=== PATIENT | male | born 1955 | race African-American/Black ===

== ENCOUNTER 2020-01-14 07:27 | Inpatient (IN) | payer OTHER, BC ==
--- NOTE | 2020-01-14 07:40 | PDOC ---
History of Present Illness - General Chief Complaint: Nausea/Vomiting Stated Complaint: VOMITING Time Seen by Provider: 01/14/20 07:33 - History of Present Illness Initial Comments: 01/14/20 07:56 The patient is a 64 year old male with a history of HTN, HLD, DM who presents for evaluation of chest pain and nausea/vomiting. The patient reports onset of left sided chest tightness with subsequent development of nausea and multiple episodes of non-bilious/non-bloody vomiting at 1am this morning prompting his presentation to the ED for further evaluation. He denies any exacerbating or relieving factors. He denies similar symptoms in the past and otherwise denies fevers, chills, SOB, abdominal pain, or changes with urination or bowel movements. Past History - Medical History Allergies/Adverse Reactions: Allergies Allergy/AdvReac Type Severity Reaction Status Date / Time No Known Drug Allergies Allergy Verified 06/30/15 09:37 Home Medications: Ambulatory Orders Atorvastatin Calcium [Lipitor] 10 mg PO DAILY 10/05/12 Lisinopril [Prinivil] 10 mg PO DAILY 10/05/12 Sitagliptin Phos/Metformin HCl [Janumet 50-1,000 mg Tablet] 50 - 1,000 each PO BID 10/05/12 Gabapentin [Neurontin] 0 mg PO ASDIR 06/30/15 Aspirin Coated [Ecotrin -] 81 mg PO DAILY #30 tablet.ec 07/03/15 Glyburide 5 mg PO DAILY #0 07/03/15 Anemia: No Asthma: No Cancer: No Cardiac Disorders: No CVA: No COPD: No CHF: No Dementia: No Diabetes: Yes GI Disorders: No Disorders: Yes (BLADDER STONES;BPH) HTN: No Hypercholesterolemia: Yes Liver Disease: No Seizures: No Thyroid Disease: No - Surgical History Abdominal Surgery: Yes (Umbilical hernia repair) Appendectomy: No Cardiac Surgery: No Cholecystectomy: No Lung Surgery: No Neurologic Surgery: No Orthopedic Surgery: Yes (CTR; RIGHT HAND) - Psycho-Social/Smoking History Smoking Status: No Smoking History: Current every day smoker Have you smoked in the past 12 months: Yes Number of Cigarettes Smoked Daily: 5 If you are a former smoker, when did you quit?: 1987 'Breaking Loose' booklet given: 06/30/15 Review of Systems - Review of Systems Comments:: 01/14/20 08:01 Constitutional: No fevers, chills, fatigue, malaise HEENT: No Rhinorrhea, nasal congestion, visual changes Cardiovascular: Chest tightness. No syncope, palpitations, lightheadedness Respiratory: No Cough, SOB, Hemoptysis, Gastrointestinal: Nausea, Vomiting No Abdominal pain, Constipation, Diarrhea, Melena Genitourinary: No Dysuria, Frequency, Urgency, Hesitancy, Hematuria, Flank pain Musculoskeletal: No Myalgia, arthralgia Skin: No rashes, itching, bruising, pallor Neurologic: No Headache, Dizziness, Numbness, Weakness, or Tingling Psychiatric: No Hallucinations. No SI or HI *Physical Exam - Physical Exam 01/14/20 08:01 General Appearance: Nourished. No Apparent Distress HEENT: No Pharyngeal Erythema, Tonsillar Exudate, Tonsillar Erythema Neck: No Cervical Lymphadenopathy Respiratory/Chest: Lungs Clear, Normal Breath Sounds. No Crackles, Rales, Rhonchi, Wheezing Cardiovascular: Regular Rhythm, Regular Rate. No Murmur, Gallops, Rubs Gastrointestinal/Abdominal: Normal Bowel Sounds, Soft. No Guarding, Rebound, Tenderness Musculoskeletal: No CVA Tenderness Extremity: Normal Capillary Refill Integumentary: Normal Color, Dry, Warm Neurologic: Fully Oriented, Alert, Normal Mood/Affect, Normal Response, Heart Score/ECG Review #1 ECG reviewed & interpreted by me at: 08:02 01/14/20 08:02 HR 88 SC 244 QRS 82 QTc 413 Sinus rhythm with 1st degree AV Block T wave inversions in leads V5-V6 ED Treatment Course - LABORATORY CBC & Chemistry Diagram: 01/14/20 08:00 01/14/20 08:00 Medical Decision Making - Medical Decision Making 01/14/20 08:03 The patient is a 64 year old male with a history of HTN, HLD, DM who presents for evaluation of chest pain and nausea/vomiting. Differential includes but is not limited to: ACS, Musculoskeletal, Pancreatitis, Gastritis, Infectious, Metabolic derangement. Given the patient's history and physical exam, we will obtain a cbc, cmp, troponin, lipase, ekg, chest plain film to evaluate further. We will treat with asa, zofran, iv fluids and continue to monitor and reassess while here in the ED. 01/14/20 12:03 CBC, cmp, troponin, lipase were unremarkable. Chest plain film did not demonstrate any acute pathology. Gallbladder US demonstrated gallstones but no evidence of acute cholecystitis. Given the patient's cardiac risk factors, the patient will require observation admission for further monitoring and management. Discharge - Discharge Information Problems reviewed: Yes Clinical Impression/Diagnosis: Chest pain Qualifiers: Chest pain type: unspecified Qualified Code(s): R07.9 - Chest pain, unspecified Condition: Stable - Admission Yes - Follow up/Referral Referrals: James Mcfarland MD [Primary Care Provider] - - Patient Discharge Instructions - Post Discharge Activity
[2020-01-14] MEDS ORDERED: SODIUM CHLORIDE 1,000 ML IV STA (07:41)
[2020-01-14] MEDS ORDERED: ONDANSETRON 4 MG/2 ML VIAL IVPUSH ONE (07:41)
[2020-01-14] MEDS ORDERED: ASPIRIN 81 MG CHEWABLE TABLETS PO ONE (07:41)
[2020-01-14] MEDS ORDERED: ASPIRIN 81 MG CHEWABLE TABLETS ONE (07:49)
--- NOTE | 2020-01-14 07:51 | PDOC ---
Attending Attestation - Resident Resident Name: Eligio Bernal - ED Attending Attestation I have performed the following: I have examined & evaluated the patient, The case was reviewed & discussed with the resident, I agree w/resident's findings & plan, Exceptions are as noted - HPI HPI: 01/14/20 07:50 64y M hx of htn, hl, dm, presents with chest pain, n/v since approx 1am. Patient states he was watching TV at approximately 1 AM when he developed a pressure-like sensation in his mid chest associated with nausea and vomiting. The patient notes the pain seems to wax and wane lasting for several minutes at a time and then resolving before coming back an hour later. He denies any associated shortness of breath, diaphoresis, dyspnea on exertion, back pain, urinary or bowel chnges, focal numbness/tingling/weakness. He does state that with the pain he does feel very nauseous and vomits. Patient notes that he does drink alcohol frequently. IT developed as a L sided chest pain/pressure that has been constant associatd with n/v. denies any sob, abd pain, changes in bms, back pain, torres. Social hx: etoh abuse, smokes marjana and cigerettes - Physicial Exam PE: 01/14/20 08:23 GENERAL: The patient is awake, alert, and fully oriented, Nontoxic - in no acute distress. HEAD: Normocephalic, atraumatic. EYES: extraocular movements intact, sclera anicteric, conjunctiva clear. ENT: Normal voice, Moist mucous membranes. NECK: Normal range of motion, supple LUNGS: Breath sounds equal, clear to auscultation bilaterally. No wheezes, no rhonchi, no rales. HEART: Regular rate and rhythm, normal S1 and S2 without murmur, rub or gallop. ABDOMEN: Soft, nontender, No guarding, no rebound. No CVA tenderness EXTREMITIES: Normal range of motion, no edema. NEUROLOGICAL: No facial assymetry, Normal speech, PSYCH: Normal mood, normal affect. SKIN: Warm, Dry, normal turgor, - Medical Decision Making 01/14/20 08:23 Differential for the patient's symptoms includes possible ACS, consider gallbladder disease, pancreatitis, alcohol gastritis will obtain blood work, ekg, cxr will give gi coctail, asa will reasesss 01/14/20 12:23 pt admitted for further management of cp Discharge - Discharge Information Problems reviewed: Yes Clinical Impression/Diagnosis: Chest pain Qualifiers: Chest pain type: unspecified Qualified Code(s): R07.9 - Chest pain, unspecified Condition: Stable Disposition: HOME - Follow up/Referral - Patient Discharge Instructions - Post Discharge Activity
[2020-01-14] MEDS ORDERED: MAG HYDROX/AL HYDROX/SIMETH -MYLANTA- ORAL SUSPENSION PO ONE (08:10)
[2020-01-14] MEDS ORDERED: FAMOTIDINE 20 MG/50 ML IVPB 20 MG in PREMIX 50 IVPB ONE (08:10)
[2020-01-14 08:19] LABS: BASO % 0.7 % (0-2.0); EOS % 1.1 % (0-4.5); HEMATOCRIT 44.4 % (35.4-49); HEMOGLOBIN 15.2 GM/dL (11.7-16.9); LYMPH % 15.1 % (8-40); MCH 33.2 pg (25.7-33.7); MCHC 34.2 g/dl (32.0-35.9); MEAN CELL VOLUME 96.9 fl (80-96); MONO % 3.5 % (3.8-10.2); NEUT % 79.6 % (42.8-82.8); PLATELET COUNT 218 K/MM3 (134-434); RBC 4.58 M/mm3 (4.00-5.60); RDW 13.5 % (11.9-15.9); WHITE BLOOD COUNT 7.8 K/mm3 (4.0-10.0)
[2020-01-14 08:39] LABS: ALBUMIN 4.2 g/dl (3.4-5.0); ALK PHOS 79 U/L (45-117); ANION GAP 9 MMOL/L (8-16); BILIRUBIN,TOTAL 0.5 mg/dL (0.2-1); BLOOD UREA NITROGEN 13.2 mg/dL (7-18); CALCIUM 10.5 mg/dL (8.5-10.1); CHLORIDE 104 mmol/L (98-107); CO2 26 mmol/L (21-32); CREATININE 1.3 mg/dL (0.55-1.3); GLUCOSE,RANDOM 283 mg/dL (74-106); LIPASE 252 U/L (73-393); N-TERMINAL BNP 37.4 pg/ml (5-125); SGOT/AST 26 U/L (15-37); SGPT/ALT 56 U/L (13-61); SODIUM 139 mmol/L (136-145); TOT PROT 7.8 g/dl (6.4-8.2)
[2020-01-14] MEDS ORDERED: FAMOTIDINE 20 MG/50 ML IVPB 20 MG/50 ML MG IVPB ONE ×2 (08:59→09:02)
[2020-01-14] MEDS ORDERED: MAG HYDROX/AL HYDROX/SIMETH 30 ML UNIT-DOSE CUP ONE (08:59)
--- NOTE | 2020-01-14 12:29 | HP ---
Admitting History and Physical - Primary Care Physician PCP: Pearl Jean - Admission Chief Complaint: chest pain, History of Present Illness: 01/14/20 07:50 64y M hx of htn, hl, dm, presents with chest pain, n/v since approx 1am. Patient states he was watching TV at approximately 1 AM when he developed a pressure-like sensation in his mid chest associated with nausea and vomiting. The patient notes the pain seems to wax and wane lasting for several minutes at a time and then resolving before coming back an hour later. He denies any associated shortness of breath, diaphoresis, dyspnea on exertion, back pain, urinary or bowel chnges, focal numbness/tingling/weakness. He does state that with the pain he does feel very nauseous and vomits. Patient notes that he does drink alcohol frequently. IT developed as a L sided chest pain/pressure that has been constant associatd with n/v. denies any sob, abd pain, changes in bms, back pain, torres. Social hx: etoh abuse, smokes marjana and cigerettes History Source: Patient - Past Medical History Cardiovascular: Yes: HTN, Hyperlipdemia Renal/: Yes: BPH Endocrine: Yes: Diabetes Mellitus - Past Surgical History Additional Past Surgical History: cervical spine fusion, level unknown, - Smoking History Smoking history: Current every day smoker Have you smoked in the past 12 months: Yes Aproximately how many cigarettes per day: 5 If you are a former smoker, when did you quit?: 1987 - Alcohol/Substance Use Hx Alcohol Use: Yes (OCCAS) Number of Drinks Daily: 1 History of Substance Use: reports: Marijuana - Social History ADL: Independent History of Recent Travel: No Home Medications - Allergies Allergies/Adverse Reactions: Allergies Allergy/AdvReac Type Severity Reaction Status Date / Time No Known Drug Allergies Allergy Verified 06/30/15 09:37 - Home Medications Home Medications: Ambulatory Orders Atorvastatin Calcium [Lipitor] 10 mg PO DAILY 10/05/12 Lisinopril [Prinivil] 10 mg PO DAILY 10/05/12 Sitagliptin Phos/Metformin HCl [Janumet 50-1,000 mg Tablet] 50 - 1,000 each PO BID 10/05/12 Gabapentin [Neurontin] 0 mg PO ASDIR 06/30/15 Aspirin Coated [Ecotrin -] 81 mg PO DAILY #30 tablet.ec 07/03/15 Glyburide 5 mg PO DAILY #0 07/03/15 Family Medical History Family History: Unremarkable Physical Examination Vital Signs: Vital Signs Temperature 98.4 F 01/14/20 07:35 Pulse Rate 97 H 01/14/20 11:38 Respiratory Rate 17 01/14/20 11:38 Blood Pressure 148/87 01/14/20 11:38 O2 Sat by Pulse Oximetry (%) 99 01/14/20 11:38 Constitutional: Yes: Well Nourished, No Distress, Calm Eyes: Yes: Conjunctiva Clear, EOM Intact HENT: Yes: Atraumatic, Normocephalic Neck: Yes: WNL, Supple, Trachea Midline Cardiovascular: Yes: Regular Rate and Rhythm Respiratory: Yes: Regular, CTA Bilaterally Gastrointestinal: Yes: Normal Bowel Sounds, Soft, Other (non tender,) Musculoskeletal: Yes: WNL Extremities: Yes: WNL Edema: No Peripheral Pulses WNL: No Integumentary: Yes: WNL Labs: CBC, BMP 01/14/20 08:00 01/14/20 08:00 Imaging - Results Ultrasound: Report Reviewed ( Cholelithiasis is noted without sonographic evidence of acute cholecystitis. Early acute cholecystitis may not be demonstrable on sonography. There is no definite biliary tract dilatation.) Assessment/Plan The patient is a 64 year old male with a history of HTN, HLD, DM who presents for evaluation of 1.chest Pain rule out, ACS, Musculoskeletal, Pancreatitis, Gastritis, Infectious, Metabolic derangement. 1st set of cardiac markers negative, and EKG, nsr no acute st t changes, will check the fu and will get echo, and cardiology eval usg of abd Cholelithiasis is noted without sonographic evidence of acute cholecystitis. Early acute cholecystitis may not be demonstrable on sonography. There is no definite biliary tract dilatation. 2.nausea and vomiting, cont zofran and mylantal 3. DM RISS will hold po meds,bc of the vomiting 4. hld continue home meds. dvt prophylaxis, clear liquid diet and advace as tolerated Visit type - Emergency Visit Emergency Visit: Yes ED Registration Date: 01/14/20 Care time: The patient presented to the Emergency Department on the above date and was hospitalized for further evaluation of their emergent condition. - New Patient This patient is new to me today: Yes Date on this admission: 01/14/20 - Critical Care Critical Care patient: No
[2020-01-14] MEDS ORDERED: ACETAMINOPHEN 325 MG TABLET (FP) PO PRN (12:36)
[2020-01-14] MEDS ORDERED: MAG HYDROX/AL HYDROX/SIMETH 30 ML UNIT-DOSE CUP PO PRN (12:44)
--- NOTE | 2020-01-14 17:47 | CON.CARD ---
Consult Consult Specialty:: cardiology Reason for Consultation:: chest pain - History of Present Illness Chief Complaint: Pt A&Ox3; c/o nausea and vomiting; denies recent alcohol intake History of Present Illness: 64y black man (b. Carpio) with PM hx of htn, diastolic CHF hld, dm, substance abuse, presents with chest pain, n/v since approx 1am. Patient states he was watching TV at approximately 1 AM when he developed a pressure-like sensation in his mid chest associated with nausea and vomiting. The patient notes the pain seems to wax and wane lasting for several minutes at a time and then resolving before coming back an hour later. He denies any associated shortness of breath, diaphoresis, dyspnea on exertion, back pain, urinary or bowel changes, focal numbness/tingling/weakness. He does state that with the pain he does feel very nauseous and vomits. Patient notes that he does drink alcohol frequently. IT developed as a L sided chest pain/pressure that has been constant associatd with n/v. denies any sob, abd pain, changes in bms, back pain, torres. Social hx: etoh abuse, smokes marijuana and cigarettes daily; (denies cocaine) - History Source History Provided By: Patient, Medical Record Limitations to Obtaining History: No Limitations - Past Medical History Cardio/Vascular: Yes: HTN, Hyperlipdemia Renal/: Yes: BPH Endocrine: Yes: Diabetes Mellitus - Alcohol/Substance Use Hx Alcohol Use: Yes (OCCAS) Number of Drinks Daily: 1 History of Substance Use: reports: Marijuana - Smoking History Smoking history: Current every day smoker Have you smoked in the past 12 months: Yes Aproximately how many cigarettes per day: 5 If you are a former smoker, when did you quit?: 1987 - Social History ADL: Independent History of Recent Travel: No Home Medications - Allergies Allergies/Adverse Reactions: Allergies Allergy/AdvReac Type Severity Reaction Status Date / Time No Known Drug Allergies Allergy Verified 06/30/15 09:37 - Home Medications Home Medications: Ambulatory Orders Lisinopril [Prinivil] 10 mg PO DAILY 10/05/12 Sitagliptin Phos/Metformin HCl [Janumet 50-1,000 mg Tablet] 50 - 1,000 each PO BID 10/05/12 Atorvastatin Ca [Lipitor] 20 mg PO HS 01/15/20 Family Medical History Family History: Denies Review of Systems - Review of Systems Constitutional: reports: No Symptoms Eyes: reports: No Symptoms HENT: reports: No Symptoms Neck: reports: No Symptoms Cardiovascular: reports: Chest Pain Respiratory: reports: No Symptoms Gastrointestinal: reports: Nausea, Vomiting Genitourinary: reports: No Symptoms Breasts: reports: No Symptoms Reported Musculoskeletal: reports: No Symptoms Integumentary: reports: No Symptoms Neurological: reports: No Symptoms Endocrine: reports: No Symptoms Hematology/Lymphatic: reports: No Symptoms Psychiatric: reports: Other (addictions) - Risk Factors Known Risk Factors: Yes: Age, Gender, Hypercholesterolemia, Hypertension, Race, Smoking Vital Signs: Vital Signs Temperature 98.4 F 01/14/20 07:35 Pulse Rate 97 H 01/14/20 11:38 Respiratory Rate 17 01/14/20 11:38 Blood Pressure 148/87 01/14/20 11:38 O2 Sat by Pulse Oximetry (%) 99 01/14/20 11:38 Constitutional: Yes: Calm Eyes: Yes: WNL HENT: Yes: WNL Neck: Yes: WNL Respiratory: Yes: WNL Gastrointestinal: Yes: Soft, Tenderness Renal/: No: Anuria Cardiovascular: Yes: Regular Rate and Rhythm Heart Sounds: Yes: S1 (split), S2 Murmur: Yes: Systolic Murmur, Grade 1 Musculoskeletal: Yes: WNL Extremities: Yes: WNL Edema: No Integumentary: Yes: WNL Neurological: Yes: WNL ...Motor Strength: WNL Psychiatric: Yes: WNL - Other Data Labs, Other Data: CBC, BMP 01/14/20 08:00 01/14/20 08:00 Troponin, BNP 01/14/20 08:00 Troponin I < 0.02 B-Natriuretic Peptide 37.4 Troponin, BNP 01/14/20 08:00 Troponin I < 0.02 B-Natriuretic Peptide 37.4 Abnormal Lab Results 01/15/20 01/15/20 01/15/20 06:00 06:00 06:00 WBC 11.7 H Absolute Neuts (auto) 9.5 H Random Glucose 184 H Hemoglobin A1c % 9.0 H Calcium 10.7 H Creatine Kinase 310 H Triglycerides 164 H Cholesterol 229 H Total LDL Cholesterol 140 H HDL Cholesterol 38 L Urine Protein Urine Glucose (UA) Urine Ketones U Random Total Protein Urine Creatinine U Marijuana (THC) Screen 01/15/20 01/15/20 01/15/20 06:00 06:00 15:30 WBC Absolute Neuts (auto) Random Glucose Hemoglobin A1c % Calcium Creatine Kinase Triglycerides Cholesterol Total LDL Cholesterol HDL Cholesterol Urine Protein 2+ H Urine Glucose (UA) 2+ H Urine Ketones 2+ H U Random Total Protein 47.0 H Urine Creatinine 180.0 H U Marijuana (THC) Screen Positive A* 01/15/20 18:00 WBC Absolute Neuts (auto) Random Glucose Hemoglobin A1c % Calcium Creatine Kinase 408 H Triglycerides Cholesterol Total LDL Cholesterol HDL Cholesterol Urine Protein Urine Glucose (UA) Urine Ketones U Random Total Protein Urine Creatinine U Marijuana (THC) Screen Imaging - Results Chest X-ray: Image Reviewed EKG: Image Reviewed Assessment/Plan Toxicology screen Serial TNi EKG Hydration BP control (on lisinopril); f/u ECHO for LVEF (normal in 2014), diastolic compliance, valve status, chamber sizes. Help with smoking cessation (pt says he will stop tobacco, but plans to reduce, but not stop marijuana). COVID status pending.
[2020-01-14] MEDS: INSULIN SLIDING SCALE (NOVOLOG) 1 VIAL SQ SCH ×2 (18:14→22:06)
--- NOTE | 2020-01-14 18:36 | EKG ---
Test Reason : Blood Pressure : / mmHG Vent. Rate : 088 BPM Atrial Rate : 088 BPM P-R Int : 244 ms QRS Dur : 082 ms QT Int : 342 ms P-R-T Axes : 056 042 082 degrees QTc Int : 413 ms SINUS RHYTHM WITH 1ST DEGREE A-V BLOCK LEFT ATRIAL ENLARGEMENT LEFT VENTRICULAR HYPERTROPHY NONSPECIFIC T WAVE ABNORMALITY ABNORMAL ECG Confirmed by MD MITCHELL MOYSES ([id number]) on 01/14/2020 6:36:10 PM Referred By: Confirmed By:ZAY MITCHELL MD
[2020-01-14 18:55] VITALS: BMI 21.6
[2020-01-14] MEDS ORDERED: ATORVASTATIN CA 10 MG TABLET (FP) PO SCH (22:00)
[2020-01-14] MEDS: ENOXAPARIN NA (PORCINE) 40 MG/0.4 ML DISP.SYRIN SQ SCH (22:06)
[2020-01-15] MEDS: ONDANSETRON 4 MG/2 ML VIAL IVPUSH PRN ×3 (05:59→21:55)
[2020-01-15] MEDS: INSULIN SLIDING SCALE (NOVOLOG) 1 VIAL SQ SCH ×4 (06:01→21:56)
[2020-01-15 07:00] LABS: BASO % 0.3 % (0-2.0); EOS % 0.3 % (0-4.5); HEMATOCRIT 46.2 % (35.4-49); HEMOGLOBIN 15.6 GM/dL (11.7-16.9); LYMPH % 12.5 % (8-40); MCH 32.4 pg (25.7-33.7); MCHC 33.8 g/dl (32.0-35.9); MEAN CELL VOLUME 95.8 fl (80-96); MEAN PLT VOLUME 9.1 fl (7.5-11.1); MONO % 5.9 % (3.8-10.2); PLATELET COUNT 232 K/MM3 (134-434); RBC 4.82 M/mm3 (4.00-5.60); RDW 13.8 % (11.9-15.9); WHITE BLOOD COUNT 11.7 K/mm3 (4.0-10.0)
[2020-01-15 07:07] LABS: ALBUMIN 4.1 g/dl (3.4-5.0); ANION GAP 10 MMOL/L (8-16); CHLORIDE 102 mmol/L (98-107); CO2 25 mmol/L (21-32); CREATININE 1.2 mg/dL (0.55-1.3); MAGNESIUM 2.4 mg/dL (1.8-2.4); POTASSIUM 3.5 mmol/L (3.5-5.1); SGOT/AST 17 U/L (15-37); SGPT/ALT 47 U/L (13-61); SODIUM 137 mmol/L (136-145); TOT PROT 7.8 g/dl (6.4-8.2)
[2020-01-15 07:16] LABS: ALK PHOS 80 U/L (45-117); BILIRUBIN,TOTAL 0.8 mg/dL (0.2-1); BLOOD UREA NITROGEN 13.7 mg/dL (7-18); CALCIUM 10.7 mg/dL (8.5-10.1); CHOLESTEROL 229 mg/dL (50-200); GLUCOSE,RANDOM 184 mg/dL (74-106); HDL CHOLESTEROL 38 mg/dL (40-60); LDL CHOLESTEROL (ONLY SJRH) 140 mg/dL (5-100); TRIGLYCERIDES 164 mg/dL (0-150)
[2020-01-15 07:24] LABS: PH,URINE 6.5 (5.0-8.0); URINE APPEARANCE Clear; URINE BILIRUBIN Negative (NEGATIVE); URINE COLOR Yellow; URINE GLUCOSE (UA) 2+ (NEGATIVE); URINE KETONE 2+ (NEGATIVE); URINE LEUK ESTERASE Negative (NEGATIVE); URINE NITRITE Negative (NEGATIVE); URINE PROTEIN 2+ (NEGATIVE); URINE UROBILINOGEN 0.2 mg/dL (0.2-1.0)
[2020-01-15 07:34] LABS: COCAINE, UR NEGATIVE ng/ml (CUTOFF=300); OPIATES, URI NEGATIVE ng/ml (CUTOFF=300); PHENCYCLIDINE,URINE NEGATIVE ng/ml (CUTOFF=25); URINE AMPHETAMINES NEGATIVE ng/ml (CUTOFF=500); URINE BARBITURATES NEGATIVE ng/ml (CUTOFF=200)
[2020-01-15 07:41] LABS: METHADONE, UR NEGATIVE ng/ml (CUTOFF=300); URINE BENZODIAZEPINES NEGATIVE ng/ml (CUTOFF=200)
--- NOTE | 2020-01-15 09:42 | PN ---
<Essie Antoine - Last Filed: 01/15/20 15:47> Physical Exam: SUBJECTIVE: Patient seen and examined. Denies current chest pain. Endorsing mild nausea, denies further emesis. C/o mild headache. Denies abdominal pain. OBJECTIVE: Vital Signs Period Temp Pulse Resp BP Sys/Rose Pulse Ox Last 24 Hr 98.3 F-99.5 F 88-98 17-20 146-151/77-93 98-99 GENERAL: The patient is awake, alert, and fully oriented, in no acute distress. HEENT: NCAT. Sclera anicteric. No JVD. LUNGS: Breath sounds equal, ctabl, no wheezes, no crackles, no accessory muscle use. HEART: Regular rate and rhythm, S1, S2 without murmur, rub or gallop. No chest wall tenderness. ABDOMEN: Soft, nontender, nondistended, + bowel sounds, no guarding. EXTREMITIES: 2+ pulses, warm, well-perfused, no edema. NEUROLOGICAL: Cranial nerves II through XII grossly intact. PSYCH: Normal mood, normal affect. SKIN: Warm, dry, normal turgor, no rashes or lesions noted Laboratory Results - last 24 hr 01/14/20 01/14/20 01/14/20 16:13 19:30 22:05 WBC RBC Hgb Hct MCV MCH MCHC RDW Plt Count MPV Absolute Neuts (auto) Neutrophils % Lymphocytes % Monocytes % Eosinophils % Basophils % Nucleated RBC % Sodium Potassium Chloride Carbon Dioxide Anion Gap BUN Creatinine Est GFR (CKD-EPI)AfAm Est GFR (CKD-EPI)NonAf POC Glucometer 261 186 Random Glucose Hemoglobin A1c % Calcium Magnesium Total Bilirubin AST ALT Alkaline Phosphatase Creatine Kinase 1000 H Creatine Kinase Index 0.4 CK-MB (CK-2) 4.4 H Troponin I < 0.02 Total Protein Albumin Triglycerides Cholesterol Total LDL Cholesterol HDL Cholesterol Urine Color Urine Appearance Urine pH Ur Specific [place] Urine Protein Urine Glucose (UA) Urine Ketones Urine Blood Urine Nitrite Urine Bilirubin Urine Urobilinogen Ur Leukocyte Esterase Opiates Screen Methadone Screen Barbiturate Screen Phencyclidine Screen Ur Amphetamines Screen MDMA (Ecstasy) Screen Benzodiazepines Screen Cocaine Screen U Marijuana (THC) Screen 01/15/20 01/15/20 01/15/20 05:49 06:00 06:00 WBC 11.7 H RBC 4.82 Hgb 15.6 Hct 46.2 MCV 95.8 MCH 32.4 MCHC 33.8 RDW 13.8 Plt Count 232 MPV 9.1 Absolute Neuts (auto) 9.5 H Neutrophils % 81.0 Lymphocytes % 12.5 Monocytes % 5.9 Eosinophils % 0.3 Basophils % 0.3 Nucleated RBC % 0 Sodium 137 Potassium 3.5 Chloride 102 Carbon Dioxide 25 Anion Gap 10 BUN 13.7 Creatinine 1.2 Est GFR (CKD-EPI)AfAm 74.14 Est GFR (CKD-EPI)NonAf 63.97 POC Glucometer 197 Random Glucose 184 H Hemoglobin A1c % Calcium 10.7 H Magnesium 2.4 Total Bilirubin 0.8 AST 17 ALT 47 Alkaline Phosphatase 80 Creatine Kinase Creatine Kinase Index CK-MB (CK-2) Troponin I Total Protein 7.8 Albumin 4.1 Triglycerides 164 H Cholesterol 229 H Total LDL Cholesterol 140 H HDL Cholesterol 38 L Urine Color Urine Appearance Urine pH Ur Specific [place] Urine Protein Urine Glucose (UA) Urine Ketones Urine Blood Urine Nitrite Urine Bilirubin Urine Urobilinogen Ur Leukocyte Esterase Opiates Screen Methadone Screen Barbiturate Screen Phencyclidine Screen Ur Amphetamines Screen MDMA (Ecstasy) Screen Benzodiazepines Screen Cocaine Screen U Marijuana (THC) Screen 01/15/20 01/15/20 01/15/20 06:00 06:00 06:00 WBC RBC Hgb Hct MCV MCH MCHC RDW Plt Count MPV Absolute Neuts (auto) Neutrophils % Lymphocytes % Monocytes % Eosinophils % Basophils % Nucleated RBC % Sodium Potassium Chloride Carbon Dioxide Anion Gap BUN Creatinine Est GFR (CKD-EPI)AfAm Est GFR (CKD-EPI)NonAf POC Glucometer Random Glucose Hemoglobin A1c % 9.0 H Calcium Magnesium Total Bilirubin AST ALT Alkaline Phosphatase Creatine Kinase Creatine Kinase Index CK-MB (CK-2) Troponin I Total Protein Albumin Triglycerides Cholesterol Total LDL Cholesterol HDL Cholesterol Urine Color Yellow Urine Appearance Clear Urine pH 6.5 Ur Specific [place] 1.025 Urine Protein 2+ H Urine Glucose (UA) 2+ H Urine Ketones 2+ H Urine Blood Trace-intact Urine Nitrite Negative Urine Bilirubin Negative Urine Urobilinogen 0.2 Ur Leukocyte Esterase Negative Opiates Screen Negative Methadone Screen Negative Barbiturate Screen Negative Phencyclidine Screen Negative Ur Amphetamines Screen Negative MDMA (Ecstasy) Screen Negative Benzodiazepines Screen Negative Cocaine Screen Negative U Marijuana (THC) Screen Positive A* Active Medications Generic Name Dose Route Start Last Admin Trade Name Freq PRN Reason Stop Dose Admin Acetaminophen 650 mg 01/14/20 12:36 Tylenol - PO Q6H PRN PAIN LEVEL 4 - 6 Al Hydroxide/Mg Hydroxide 30 ml 01/14/20 12:44 Mylanta Oral Suspension - PO Q6H PRN DYSPEPSIA Aspirin 81 mg 01/15/20 10:00 Ecotrin - PO DAILY B[facility] Atorvastatin Calcium 10 mg 01/14/20 22:00 01/14/20 22:06 Lipitor - PO 10 mg HS B[facility] Administration Enoxaparin Sodium 40 mg 01/14/20 18:45 01/14/20 22:06 Lovenox - SQ 40 mg DAILY [facility] Administration Insulin Aspart 1 vial 01/14/20 16:30 01/15/20 06:01 Novolog Vial Sliding Scale - SQ Not Given [facility] Protocol Lisinopril 10 mg 01/15/20 10:00 Prinivil PO DAILY [facility] Ondansetron HCl 4 mg 01/14/20 12:36 01/15/20 05:59 Zofran Injection IVPUSH 4 mg Q6H PRN Administration NAUSEA ASSESSMENT/PLAN: 64 y.o. M PMH HTN, HLD, DM, nicotine dependence, daily marijuana use (noncompliant with all medications, has not picked up since 05/2019) who presented to the ED with chest pain. #Atypical chest pain -EKG showing sinus rhythm, rate 88bpm. -chest pain has resolved; receved in ED pepcid 20mg, 30m mylanta, 325mg ASA -no further episodes emesis; zofran prn -troponins negative x 2 -f/u echo -cardiology following -smoking cessation education #HTN -continue home meds : lisinpril 10mg daily #HLD -ASCVD risk 56%- wuld benefit frm high intensity statin -lipitor 40mg daily #DM -HbA1c 9.0%; pt noncompliant w/ medicatins -ISS -BGMs ACHS -endocrine f/u #Nicotine dependence -nicotine patch prn #Marijuana abuse -I have counselled patient on the risks of continue marijuana smoking. Stressed importance of smoking cessation. #FEN -NS @75cc/hr -trend & replete lytes prn -diabetic, na controlled diet #Dispo ctm telemetry Visit type - Emergency Visit Emergency Visit: Yes ED Registration Date: 01/14/20 Care time: The patient presented to the Emergency Department on the above date and was hospitalized for further evaluation of their emergent condition. - New Patient This patient is new to me today: Yes Date on this admission: 01/15/20 - Critical Care Critical Care patient: No ATTENDING PHYSICIAN STATEMENT I saw and evaluated the patient. I reviewed the resident's note and discussed the case with the resident. I agree with the resident's findings and plan as documented. SUBJECTIVE: OBJECTIVE: ASSESSMENT AND PLAN: <Wilfredo Linn - Last Filed: 01/15/20 20:49> Physical Exam: SUBJECTIVE: Patient seen and examined OBJECTIVE: Vital Signs Period Temp Pulse Resp BP Sys/Rose Pulse Ox Last 24 Hr 98.0 F-98.9 F 88-97 20-20 142-150/77-104 98-98 GENERAL: The patient is awake, alert, and fully oriented, in no acute distress. HEAD: Normal with no signs of trauma. EYES: PERRL, extraocular movements intact, sclera anicteric, conjunctiva clear. No ptosis. ENT: Ears normal, nares patent, oropharynx clear without exudates, moist mucous membranes. NECK: Trachea midline, full range of motion, supple. LUNGS: Breath sounds equal, clear to auscultation bilaterally, no wheezes, no crackles, no accessory muscle use. HEART: Regular rate and rhythm, S1, S2 without murmur, rub or gallop. ABDOMEN: Soft, nontender, nondistended, normoactive bowel sounds, no guarding, no rebound, no hepatosplenomegaly, no masses. EXTREMITIES: 2+ pulses, warm, well-perfused, no edema. NEUROLOGICAL: Cranial nerves II through XII grossly intact. Normal speech, gait not observed. PSYCH: Normal mood, normal affect. SKIN: Warm, dry, normal turgor, no rashes or lesions noted Laboratory Results - last 24 hr 01/14/20 01/14/20 01/15/20 19:30 22:05 05:49 WBC RBC Hgb Hct MCV MCH MCHC RDW Plt Count MPV Absolute Neuts (auto) Neutrophils % Lymphocytes % Monocytes % Eosinophils % Basophils % Nucleated RBC % Sodium Potassium Chloride Carbon Dioxide Anion Gap BUN Creatinine Est GFR (CKD-EPI)AfAm Est GFR (CKD-EPI)NonAf POC Glucometer 186 197 Random Glucose Hemoglobin A1c % Calcium Magnesium Total Bilirubin AST ALT Alkaline Phosphatase Creatine Kinase 1000 H Creatine Kinase Index 0.4 CK-MB (CK-2) 4.4 H Troponin I < 0.02 Total Protein Albumin Triglycerides Cholesterol Total LDL Cholesterol HDL Cholesterol Urine Color Urine Appearance Urine pH Ur Specific [place] Urine Protein Urine Glucose (UA) Urine Ketones Urine Blood Urine Nitrite Urine Bilirubin Urine Urobilinogen Ur Leukocyte Esterase Urine WBC (Auto) Urine RBC (Auto) Urine Casts (Auto) U Epithel Cells (Auto) Urine Bacteria (Auto) U Random Total Protein Urine Creatinine Protein/Creatinin Ratio Opiates Screen Methadone Screen Barbiturate Screen Phencyclidine Screen Ur Amphetamines Screen MDMA (Ecstasy) Screen Benzodiazepines Screen Cocaine Screen U Marijuana (THC) Screen 01/15/20 01/15/20 01/15/20 06:00 06:00 06:00 WBC 11.7 H RBC 4.82 Hgb 15.6 Hct 46.2 MCV 95.8 MCH 32.4 MCHC 33.8 RDW 13.8 Plt Count 232 MPV 9.1 Absolute Neuts (auto) 9.5 H Neutrophils % 81.0 Lymphocytes % 12.5 Monocytes % 5.9 Eosinophils % 0.3 Basophils % 0.3 Nucleated RBC % 0 Sodium 137 Potassium 3.5 Chloride 102 Carbon Dioxide 25 Anion Gap 10 BUN 13.7 Creatinine 1.2 Est GFR (CKD-EPI)AfAm 74.14 Est GFR (CKD-EPI)NonAf 63.97 POC Glucometer Random Glucose 184 H Hemoglobin A1c % 9.0 H Calcium 10.7 H Magnesium 2.4 Total Bilirubin 0.8 AST 17 ALT 47 Alkaline Phosphatase 80 Creatine Kinase 310 H Creatine Kinase Index 0.8 CK-MB (CK-2) 2.5 Troponin I < 0.02 Total Protein 7.8 Albumin 4.1 Triglycerides 164 H Cholesterol 229 H Total LDL Cholesterol 140 H HDL Cholesterol 38 L Urine Color Urine Appearance Urine pH Ur Specific [place] Urine Protein Urine Glucose (UA) Urine Ketones Urine Blood Urine Nitrite Urine Bilirubin Urine Urobilinogen Ur Leukocyte Esterase Urine WBC (Auto) Urine RBC (Auto) Urine Casts (Auto) U Epithel Cells (Auto) Urine Bacteria (Auto) U Random Total Protein Urine Creatinine Protein/Creatinin Ratio Opiates Screen Methadone Screen Barbiturate Screen Phencyclidine Screen Ur Amphetamines Screen MDMA (Ecstasy) Screen Benzodiazepines Screen Cocaine Screen U Marijuana (THC) Screen 01/15/20 01/15/20 01/15/20 06:00 06:00 11:16 WBC RBC Hgb Hct MCV MCH MCHC RDW Plt Count MPV Absolute Neuts (auto) Neutrophils % Lymphocytes % Monocytes % Eosinophils % Basophils % Nucleated RBC % Sodium Potassium Chloride Carbon Dioxide Anion Gap BUN Creatinine Est GFR (CKD-EPI)AfAm Est GFR (CKD-EPI)NonAf POC Glucometer 194 Random Glucose Hemoglobin A1c % Calcium Magnesium Total Bilirubin AST ALT Alkaline Phosphatase Creatine Kinase Creatine Kinase Index CK-MB (CK-2) Troponin I Total Protein Albumin Triglycerides Cholesterol Total LDL Cholesterol HDL Cholesterol Urine Color Yellow Urine Appearance Clear Urine pH 6.5 Ur Specific [place] 1.025 Urine Protein 2+ H Urine Glucose (UA) 2+ H Urine Ketones 2+ H Urine Blood Trace-intact Urine Nitrite Negative Urine Bilirubin Negative Urine Urobilinogen 0.2 Ur Leukocyte Esterase Negative Urine WBC (Auto) 7.3 Urine RBC (Auto) 44.8 Urine Casts (Auto) 8.34 U Epithel Cells (Auto) 31.7 Urine Bacteria (Auto) 29.6 U Random Total Protein Urine Creatinine Protein/Creatinin Ratio Opiates Screen Negative Methadone Screen Negative Barbiturate Screen Negative Phencyclidine Screen Negative Ur Amphetamines Screen Negative MDMA (Ecstasy) Screen Negative Benzodiazepines Screen Negative Cocaine Screen Negative U Marijuana (THC) Screen Positive A* 01/15/20 01/15/20 01/15/20 15:30 16:24 18:00 WBC RBC Hgb Hct MCV MCH MCHC RDW Plt Count MPV Absolute Neuts (auto) Neutrophils % Lymphocytes % Monocytes % Eosinophils % Basophils % Nucleated RBC % Sodium Potassium Chloride Carbon Dioxide Anion Gap BUN Creatinine Est GFR (CKD-EPI)AfAm Est GFR (CKD-EPI)NonAf POC Glucometer 187 Random Glucose Hemoglobin A1c % Calcium Magnesium Total Bilirubin AST ALT Alkaline Phosphatase Creatine Kinase 408 H Creatine Kinase Index 0.6 CK-MB (CK-2) 2.6 Troponin I < 0.02 Total Protein Albumin Triglycerides Cholesterol Total LDL Cholesterol HDL Cholesterol Urine Color Urine Appearance Urine pH Ur Specific [place] Urine Protein Urine Glucose (UA) Urine Ketones Urine Blood Urine Nitrite Urine Bilirubin Urine Urobilinogen Ur Leukocyte Esterase Urine WBC (Auto) Urine RBC (Auto) Urine Casts (Auto) U Epithel Cells (Auto) Urine Bacteria (Auto) U Random Total Protein 47.0 H Urine Creatinine 180.0 H Protein/Creatinin Ratio 0.3 Opiates Screen Methadone Screen Barbiturate Screen Phencyclidine Screen Ur Amphetamines Screen MDMA (Ecstasy) Screen Benzodiazepines Screen Cocaine Screen U Marijuana (THC) Screen Active Medications Generic Name Dose Route Start Last Admin Trade Name Freq PRN Reason Stop Dose Admin Acetaminophen 650 mg 01/14/20 12:36 Tylenol - PO Q6H PRN PAIN LEVEL 4 - 6 Al Hydroxide/Mg Hydroxide 30 ml 01/14/20 12:44 Mylanta Oral Suspension - PO Q6H PRN DYSPEPSIA Aspirin 81 mg 01/15/20 10:00 01/15/20 09:53 Ecotrin - PO 81 mg DAILY [facility]RA Administration Atorvastatin Calcium 40 mg 01/15/20 22:00 Lipitor - PO HS BUSHRA Enoxaparin Sodium 40 mg 01/14/20 18:45 01/15/20 09:53 Lovenox - SQ 40 mg DAILY B[facility] Administration Sodium Chloride 1,000 mls @ 75 mls/hr 01/15/20 09:45 01/15/20 09:56 Normal Saline - IV 75 mls/hr ASDIR B[facility] Administration Insulin Aspart 1 vial 01/14/20 16:30 01/15/20 16:25 Novolog Vial Sliding Scale - SQ Not Given ACHS [facility] Protocol Lisinopril 10 mg 01/15/20 10:00 01/15/20 09:53 Prinivil PO 10 mg DAILY B[facility] Administration Nicotine 14 mg 01/15/20 10:15 01/15/20 11:15 Nicoderm Patch - TD 14 mg DAILY B[facility]RA Administration Ondansetron HCl 4 mg 01/14/20 12:36 01/15/20 15:18 Zofran Injection IVPUSH 4 mg Q6H PRN Administration NAUSEA ASSESSMENT/PLAN: ATTENDING PHYSICIAN STATEMENT I saw and evaluated the patient. I reviewed the resident's note and discussed the case with the resident. I agree with the resident's findings and plan as documented. Patient seen and examined at bedside during my rounds. He endorses he smokes at least 1 joint of marijuana daily. He endorses sometimes he will smoke more. He endorses nausea but no vomiting. He also endorses that he has belching which he was doing in front of me. He states his chest pain has resolved. Troponin is now within normal limits. Patient states he is compliant with his medications and his blood pressure is usually well controlled. Blood pressure elevation may be due to nausea and retching. Blood pressure with minimal improvement after an additional dose of 10 mg of lisinopril. On exam he is alert awake and oriented to person place and time. He has a regular rate and rhythm on cardiac exam. Lungs are clear to auscultation bilaterally. Abdomen is soft nontender nondistended. No CVA tenderness. The patient is currently actively belching. Abdominal exam does not suggest obstruction. I suspect this patient may be having cyclical vomiting syndrome from excessive marijuana use. His urine toxicology shows positivity only for THC. His urinalysis is significant for glucosuria and proteinuria. We will get nephrology consult. I suspect the patient may have hypertensive nephropathy or diabetic nephropathy versus a combination of both. Will get protein to creatinine ratio. Follow-up cardiology consult. Follow-up nephrology consult. Start IV fluids as the patient also has mild hypercalcemia. Increase the patient's statin from low intensity to high intensity given his history of diabetes and current lipid profile. His ASCVD risk is elevated. The patient was counseled on the importance of discontinuing smoking cigarettes and marijuana. Patient states he is interested in stopping smoking cigarettes but not marijuana. Risks and benefits discussed with the patient. He endorses the Zofran helps a little bit. Continue with antiemetics. QTC is not excessively p rolonged. Upon further investigation the patient reports that hot showers will sometimes alleviate his nausea which furthers my suspicion for cyclical vomiting syndrome. Repeat Caclim level after hydration. Urinal at bedside shows very dark yellow urine. Rest as per resident note above.
[2020-01-15] MEDS: ASPIRIN COATED 81 MG TABLET.EC PO SCH (09:53)
[2020-01-15] MEDS: ENOXAPARIN NA (PORCINE) 40 MG/0.4 ML DISP.SYRIN SQ SCH (09:53)
[2020-01-15] MEDS: LISINOPRIL 10 MG TABLET (FP) PO SCH (09:53)
[2020-01-15] MEDS: SODIUM CHLORIDE 1,000 ML IV SCH (09:56)
[2020-01-15] MEDS: NICOTINE 14 MG/24 HOURS TOPICAL PATCH TD SCH (11:15)
--- NOTE | 2020-01-15 14:28 | EKG ---
Test Reason : Blood Pressure : / mmHG Vent. Rate : 087 BPM Atrial Rate : 087 BPM P-R Int : 214 ms QRS Dur : 078 ms QT Int : 346 ms P-R-T Axes : 049 044 072 degrees QTc Int : 416 ms SINUS RHYTHM WITH 1ST DEGREE A-V BLOCK LEFT ATRIAL ENLARGEMENT MINIMAL VOLTAGE CRITERIA FOR LVH, MAY BE NORMAL VARIANT NONSPECIFIC T WAVE ABNORMALITY ABNORMAL ECG WHEN COMPARED WITH ECG OF 14-JAN-2020 07:43, NO SIGNIFICANT CHANGE WAS FOUND Confirmed by MD PAULA, ZAY ([id number]) on 01/15/2020 2:28:29 PM Referred By: Jeovanny SCOTT Confirmed By:ZAY MITCHELL MD
[2020-01-15] MEDS ORDERED: LISINOPRIL 10 MG TABLET (FP) PO ONE (14:50)
[2020-01-15 14:52] LABS: EPI CELLS 31.7 /uL (0-25.1); HYALINE CASTS 8.34 /uL (0-3.1); URINE BACTERIA 29.6 /uL (0-1359); URINE RBC 44.8 /uL (0-23.9); URINE WBC 7.3 /uL (0-25.8)
[2020-01-15] MEDS ORDERED: PROCHLORPERAZINE MALEATE 5 MG TABLET PO ONE (17:48)
[2020-01-15] MEDS ORDERED: METOCLOPRAMIDE HCL 10 MG TABLET (FP) PO ONE (17:52)
[2020-01-15] MEDS: ATORVASTATIN CA 40 MG TABLET (FP) PO SCH (21:55)
--- NOTE | 2020-01-16 00:56 | PN ---
Progress Note, Physician Chief Complaint: Pt A&Ox3; no chest pain; + intermittent nausea, belching History of Present Illness: 64y black man (b. Carpio) with PM hx of htn, diastolic CHF, hld, DM, substance abuse, presents with chest pain, n/v since approx 1am. Patient states he was watching TV at approximately 1 AM when he developed a pressure-like sensation in his mid chest associated with nausea and vomiting. The patient notes the pain seems to wax and wane lasting for several minutes at a time and then resolving before coming back an hour later. He denies any associated shortness of breath, diaphoresis, dyspnea on exertion, back pain, urinary or bowel changes, focal numbness/tingling/weakness. He does state that with the pain he does feel very nauseous and vomits. Patient notes that he does drink alcohol frequently. IT developed as a L sided chest pain/pressure that has been constant associatd with n/v. denies any sob, abd pain, changes in bms, back pain, torres. Social hx: etoh abuse, smokes marijuana and cigarettes daily; (denies cocaine) - Current Medication List Current Medications: Active Medications Acetaminophen (Tylenol -) 650 mg PO Q6H PRN PRN Reason: PAIN LEVEL 4 - 6 Al Hydroxide/Mg Hydroxide (Mylanta Oral Suspension -) 30 ml PO Q6H PRN PRN Reason: DYSPEPSIA Aspirin (Ecotrin -) 81 mg PO DAILY [facility] Last Admin: 01/15/20 09:53 Dose: 81 mg Documented by: Atorvastatin Calcium (Lipitor -) 40 mg PO HS [facility] Last Admin: 01/15/20 21:55 Dose: 40 mg Documented by: Enoxaparin Sodium (Lovenox -) 40 mg SQ DAILY [facility] Last Admin: 01/15/20 09:53 Dose: 40 mg Documented by: Sodium Chloride (Normal Saline -) 1,000 mls @ 75 mls/hr IV ASDIR [facility] Last Admin: 01/15/20 09:56 Dose: 75 mls/hr Documented by: Insulin Aspart (Novolog Vial Sliding Scale -) 1 vial SQ [facility]; Protocol Last Admin: 01/15/20 21:56 Dose: Not Given Documented by: Lisinopril (Prinivil) 10 mg PO DAILY [facility] Last Admin: 01/15/20 09:53 Dose: 10 mg Documented by: Nicotine (Nicoderm Patch -) 14 mg TD DAILY [facility] Last Admin: 01/15/20 11:15 Dose: 14 mg Documented by: Ondansetron HCl (Zofran Injection) 4 mg IVPUSH Q6H PRN PRN Reason: NAUSEA Last Admin: 01/15/20 21:55 Dose: 4 mg Documented by: - Objective Vital Signs: Vital Signs Temperature 98.6 F 01/15/20 20:45 Pulse Rate 92 H 01/15/20 20:45 Respiratory Rate 01/15/20 20:45 Blood Pressure 152/102 H 01/15/20 20:45 O2 Sat by Pulse Oximetry (%) 99 01/15/20 20:45 Constitutional: Yes: Calm Eyes: Yes: WNL Labs: CBC, BMP 01/15/20 06:00 01/15/20 06:00 Assessment/Plan Nausea and vomiting atypical chest pain: negative troponins x 3 Toxicology screen: marijuana DM HTN HLD leukocytosis EKG: NSR; LAE; LVH; 1st degree AV block; T wave changes. Continue Hydration BP control (on lisinopril); f/u ECHO for LVEF (normal in 2014), diastolic compliance, valve status, chamber sizes. COVID status: IgG Ab negative Statin (elevated LDL). F/u GI w/u Pt agrees to start nicotine patch, says his has been trying to get him to stop smoking.
[2020-01-16] MEDS: INSULIN SLIDING SCALE (NOVOLOG) 1 VIAL SQ SCH ×4 (06:18→22:10)
[2020-01-16] MEDS: LISINOPRIL 10 MG TABLET (FP) PO SCH (06:57)
[2020-01-16 07:37] LABS: HEMATOCRIT 48.2 % (35.4-49); HEMOGLOBIN 16.5 GM/dL (11.7-16.9); MCH 33.3 pg (25.7-33.7); MCHC 34.2 g/dl (32.0-35.9); MEAN CELL VOLUME 97.5 fl (80-96); MEAN PLT VOLUME 9.5 fl (7.5-11.1); PLATELET COUNT 245 K/MM3 (134-434); RBC 4.95 M/mm3 (4.00-5.60); RDW 13.2 % (11.9-15.9); WHITE BLOOD COUNT 10.7 K/mm3 (4.0-10.0)
[2020-01-16 08:02] LABS: ALBUMIN 3.8 g/dl (3.4-5.0); BLOOD UREA NITROGEN 15.3 mg/dL (7-18); CALCIUM 10.3 mg/dL (8.5-10.1); CREATININE 1.1 mg/dL (0.55-1.3); POTASSIUM 4.8 mmol/L (3.5-5.1); TOT PROT 7.5 g/dl (6.4-8.2)
[2020-01-16] MEDS ORDERED: PT OWN MED DRAWER 7, Y5N ONE (08:02)
[2020-01-16] MEDS ORDERED: LISINOPRIL 10 MG TABLET (FP) PO SCH (08:50)
[2020-01-16] MEDS: ENOXAPARIN NA (PORCINE) 40 MG/0.4 ML DISP.SYRIN SQ SCH (09:16)
[2020-01-16] MEDS: ASPIRIN COATED 81 MG TABLET.EC PO SCH (09:16)
[2020-01-16] MEDS: NICOTINE 14 MG/24 HOURS TOPICAL PATCH TD SCH (09:17)
--- NOTE | 2020-01-16 09:30 | PN ---
Progress Note, Physician History of Present Illness: Denies further chest pain, nausea, emesis. BP remains elevated. - Current Medication List Current Medications: Active Medications Acetaminophen (Tylenol -) 650 mg PO Q6H PRN PRN Reason: PAIN LEVEL 4 - 6 Al Hydroxide/Mg Hydroxide (Mylanta Oral Suspension -) 30 ml PO Q6H PRN PRN Reason: DYSPEPSIA Aspirin (Ecotrin -) 81 mg PO DAILY [facility] Last Admin: 01/16/20 09:16 Dose: 81 mg Documented by: Atorvastatin Calcium (Lipitor -) 40 mg PO HS [facility] Last Admin: 01/15/20 21:55 Dose: 40 mg Documented by: Enoxaparin Sodium (Lovenox -) 40 mg SQ DAILY [facility] Last Admin: 01/16/20 09:16 Dose: 40 mg Documented by: Sodium Chloride (Normal Saline -) 1,000 mls @ 75 mls/hr IV ASDIR [facility] Last Admin: 01/15/20 09:56 Dose: 75 mls/hr Documented by: Insulin Aspart (Novolog Vial Sliding Scale -) 1 vial SQ [facility]; Protocol Last Admin: 01/16/20 06:18 Dose: Not Given Documented by: Lisinopril (Prinivil) 30 mg PO DAILY [facility] Last Admin: 01/16/20 09:17 Dose: 30 mg Documented by: Nicotine (Nicoderm Patch -) 14 mg TD DAILY [facility] Last Admin: 01/16/20 09:17 Dose: 14 mg Documented by: Ondansetron HCl (Zofran Injection) 4 mg IVPUSH Q6H PRN PRN Reason: NAUSEA Last Admin: 01/15/20 21:55 Dose: 4 mg Documented by: - Objective Vital Signs: Vital Signs Temperature 98 F 01/16/20 09:26 Pulse Rate 86 01/16/20 09:26 Respiratory Rate 20 01/16/20 09:26 Blood Pressure 173/110 H 01/16/20 09:26 O2 Sat by Pulse Oximetry (%) 99 01/15/20 20:45 Constitutional: Yes: No Distress, Calm Neck: Yes: Supple Cardiovascular: Yes: Regular Rate and Rhythm Respiratory: Yes: Regular, CTA Bilaterally Gastrointestinal: Yes: Normal Bowel Sounds, Soft Edema: No Labs: CBC, BMP 01/16/20 06:05 01/16/20 06:05 - ....Imaging EKG: Report Reviewed (Tele: NSR @ 87 1st deg AVB LVH) Problem List - Problems (1) Atypical chest pain Code(s): R07.89 - OTHER CHEST PAIN (2) Diabetes 1.5, managed as type 2 Code(s): E13.9 - OTHER SPECIFIED DIABETES MELLITUS WITHOUT COMPLICATIONS (3) Hyperlipidemia Code(s): E78.5 - HYPERLIPIDEMIA, UNSPECIFIED Qualifiers: Hyperlipidemia type: pure hypercholesterolemia Qualified Code(s): E78.00 - Pure hypercholesterolemia, unspecified; E78.0 - Pure hypercholesterolemia (4) HTN (hypertension) Code(s): I10 - ESSENTIAL (PRIMARY) HYPERTENSION Qualifiers: Hypertension type: essential hypertension Qualified Code(s): I10 - Essential (primary) hypertension Assessment/Plan EKG: NSR; LAE; LVH; 1st degree AV block; T wave changes Nausea and vomiting atypical chest pain: negative troponins x 3 Toxicology screen: marijuana DM HTN HLD leukocytosis BP control (on lisinopril and add carvedlilol 6.25 bid with uptitration as tolerated); f/u ECHO for LVEF (normal in 2015), diastolic compliance, valve status, chamber sizes. COVID status: IgG Ab negative Lipitor 40 qd (elevated LDL). F/u GI w/u Pt agrees to start nicotine patch, says his has been trying to get him to stop smoking.
[2020-01-16] MEDS ORDERED: CARVEDILOL 6.25 MG TABLET (FP) PO SCH ×2 (10:45→17:41)
[2020-01-16] MEDS: SODIUM CHLORIDE 1,000 ML IV SCH (11:40)
--- NOTE | 2020-01-16 13:32 | PN ---
Physical Exam: SUBJECTIVE: Patient seen and examined at bedside. Episodes of vomiting overnight. No acute distress OBJECTIVE: Vital Signs Period Temp Pulse Resp BP Sys/Rose Pulse Ox Last 24 Hr 98 F-98.8 F 81-94 18-20 145-175/87-110 99-99 GENERAL: NAD EYES: EOMI Sclera Clear ENT: MMM. LUNGS: CTAB HEART: RRR. ABDOMEN: Hypoactive BS, Slightly distended EXTREMITIES: No CCE NEUROLOGICAL: Cranial nerves II through XII grossly intact. Laboratory Results - last 24 hr 01/14/20 01/15/20 01/15/20 12:30 06:00 15:30 WBC RBC Hgb Hct MCV MCH MCHC RDW Plt Count MPV Sodium Potassium Chloride Carbon Dioxide Anion Gap BUN Creatinine Est GFR (CKD-EPI)AfAm Est GFR (CKD-EPI)NonAf POC Glucometer Random Glucose Calcium Total Bilirubin AST ALT Alkaline Phosphatase Creatine Kinase Creatine Kinase Index CK-MB (CK-2) Troponin I Total Protein Albumin Urine WBC (Auto) 7.3 Urine RBC (Auto) 44.8 Urine Casts (Auto) 8.34 U Epithel Cells (Auto) 31.7 Urine Bacteria (Auto) 29.6 U Random Total Protein 47.0 H Urine Creatinine 180.0 H Protein/Creatinin Ratio 0.3 SARS-CoV-2 IgG Ab Negative 01/15/20 01/15/20 01/15/20 16:24 18:00 21:53 WBC RBC Hgb Hct MCV MCH MCHC RDW Plt Count MPV Sodium Potassium Chloride Carbon Dioxide Anion Gap BUN Creatinine Est GFR (CKD-EPI)AfAm Est GFR (CKD-EPI)NonAf POC Glucometer 187 181 Random Glucose Calcium Total Bilirubin AST ALT Alkaline Phosphatase Creatine Kinase 408 H Creatine Kinase Index 0.6 CK-MB (CK-2) 2.6 Troponin I < 0.02 Total Protein Albumin Urine WBC (Auto) Urine RBC (Auto) Urine Casts (Auto) U Epithel Cells (Auto) Urine Bacteria (Auto) U Random Total Protein Urine Creatinine Protein/Creatinin Ratio SARS-CoV-2 IgG Ab 01/16/20 01/16/20 01/16/20 05:20 06:05 06:05 WBC 10.7 H RBC 4.95 Hgb 16.5 Hct 48.2 MCV 97.5 H MCH 33.3 MCHC 34.2 RDW 13.2 Plt Count 245 MPV 9.5 Sodium 136 Potassium 4.8 Chloride 103 Carbon Dioxide 24 Anion Gap 10 BUN 15.3 Creatinine 1.1 Est GFR (CKD-EPI)AfAm 82.37 Est GFR (CKD-EPI)NonAf 71.07 POC Glucometer 182 Random Glucose 178 H Calcium 10.3 H Total Bilirubin 1.0 AST 40 H ALT 45 Alkaline Phosphatase 77 Creatine Kinase Creatine Kinase Index CK-MB (CK-2) Troponin I Total Protein 7.5 Albumin 3.8 Urine WBC (Auto) Urine RBC (Auto) Urine Casts (Auto) U Epithel Cells (Auto) Urine Bacteria (Auto) U Random Total Protein Urine Creatinine Protein/Creatinin Ratio SARS-CoV-2 IgG Ab 01/16/20 11:39 WBC RBC Hgb Hct MCV MCH MCHC RDW Plt Count MPV Sodium Potassium Chloride Carbon Dioxide Anion Gap BUN Creatinine Est GFR (CKD-EPI)AfAm Est GFR (CKD-EPI)NonAf POC Glucometer 181 Random Glucose Calcium Total Bilirubin AST ALT Alkaline Phosphatase Creatine Kinase Creatine Kinase Index CK-MB (CK-2) Troponin I Total Protein Albumin Urine WBC (Auto) Urine RBC (Auto) Urine Casts (Auto) U Epithel Cells (Auto) Urine Bacteria (Auto) U Random Total Protein Urine Creatinine Protein/Creatinin Ratio SARS-CoV-2 IgG Ab Active Medications Generic Name Dose Route Start Last Admin Trade Name Freq PRN Reason Stop Dose Admin Acetaminophen 650 mg 01/14/20 12:36 Tylenol - PO Q6H PRN PAIN LEVEL 4 - 6 Al Hydroxide/Mg Hydroxide 30 ml 01/14/20 12:44 Mylanta Oral Suspension - PO Q6H PRN DYSPEPSIA Aspirin 81 mg 01/15/20 10:00 01/16/20 09:16 Ecotrin - PO 81 mg DAILY BUSHRA Administration Atorvastatin Calcium 40 mg 01/15/20 22:00 01/15/20 21:55 Lipitor - PO 40 mg HS BUSHRA Administration Carvedilol 6.25 mg 01/16/20 10:45 01/16/20 11:38 Coreg - PO 6.25 mg BID BUSHRA Administration Enoxaparin Sodium 40 mg 01/14/20 18:45 01/16/20 09:16 Lovenox - SQ 40 mg DAILY BUSHRA Administration Sodium Chloride 1,000 mls @ 75 mls/hr 01/15/20 09:45 01/16/20 11:40 Normal Saline - IV 75 mls/hr ASDIR BUSHRA Administration Insulin Aspart 1 vial 01/14/20 16:30 01/16/20 11:40 Novolog Vial Sliding Scale - SQ Not Given [facility] Protocol Lisinopril 20 mg 01/16/20 10:36 Prinivil PO DAILY BUSHRA Nicotine 14 mg 01/15/20 10:15 01/16/20 09:17 Nicoderm Patch - TD 14 mg DAILY BUSHRA Administration Ondansetron HCl 4 mg 01/14/20 12:36 01/15/20 21:55 Zofran Injection IVPUSH 4 mg Q6H PRN Administration NAUSEA ASSESSMENT/PLAN: 64 y.o. M PMH HTN, HLD, DM, nicotine dependence, daily marijuana use (noncompliant with all medications, has not picked up since 05/2019) who presented to the ED with chest pain. #Atypical chest pain -EKG NSR; LAE; LVH; 1st degree AV block; T wave changes. -chest pain has resolved; received in ED pepcid 20mg, 30m mylanta, 325mg ASA -troponins negative x 2 -f/u echo -cardiology following Dr Horne -smoking cessation education #HTN -on lisinopril and add carvedlilol 6.25 bid with uptitration as tolerated #Abdominal distension -KUB to assess for any SBO or other pathology #HLD -ASCVD risk 56%- bello benefit frm high intensity statin -lipitor 40mg daily #DM -HbA1c 9.0%; pt noncompliant w/ medications -ISS -BGMs ACHS -endocrine f/u #Nicotine dependence -nicotine patch prn #Marijuana abuse -I have counselled patient on the risks of continue marijuana smoking. Stressed importance of smoking cessation. #FEN -NS @75cc/hr -trend & replete lytes prn -diabetic, na controlled diet #Dispo telemetry Visit type - Emergency Visit Emergency Visit: Yes ED Registration Date: 01/14/20 Care time: The patient presented to the Emergency Department on the above date and was hospitalized for further evaluation of their emergent condition. - New Patient This patient is new to me today: No - Critical Care Critical Care patient: No - Discharge Referral Referred to [facility] Med P.C[facility] No ATTENDING PHYSICIAN STATEMENT I saw and evaluated the patient. I reviewed the resident's note and discussed the case with the resident. I agree with the resident's findings and plan as documented. SUBJECTIVE: OBJECTIVE: ASSESSMENT AND PLAN:
--- NOTE | 2020-01-16 14:58 | PN ---
Teaching Attending Note Name of Resident: Ranjan Hernández ATTENDING PHYSICIAN STATEMENT I saw and evaluated the patient. I reviewed the resident's note and discussed the case with the resident. I agree with the resident's findings and plan as documented. SUBJECTIVE: no fever or chills. cont to feels nauseous , no SOB or cp .last BM 2 days ago. a dmits to using marijuana daily and not taking his BP meds he takes 2000 units of Vit D daiy, no immobilization fracture, no diuretics , no other meds. No weight loss . no cough OBJECTIVE: NAD , awake, alert, cooperative CV: RRR, no MRG Lungs: CTAB Abd:soft, NT, slightly distended. No BS heard Ext : No edema or erythema on upper or lower extremities . ASSESSMENT AND PLAN: 64 y/o man with h/o HTN, HLP, DM , daily marijuana use, non compliance, who presented with CP, N/V . He was found to have eevere elevation of the BP 1- HTN urgency: due to non compliance - cont lisinopril. increase form 10 mg daily to 20 - coreg added today , will cont - further adjustment if needed 2- N/v: likely cyclic vomiting sx due to marijuana use . - counseled . - IVF - get KUB due to absence of Bowel sounds. 3- Uncontrolled Dm : - does not take his janumet at home - cont SSI here - resume Janument at dc 4- Hypercalcemia : could be due to increased Vit D use. but need to r/o other causes - check PPTH - checkl 25 OH Vit D - out pt MM work up if above work up is negative - cont IVF 5- HLP: cont statin 6- Cp resolved . EKG reviewed. 7- Biliary stones, no cholecystitis . out pt surgical f/u HLOC as he needs more BP control
[2020-01-16] MEDS ORDERED: CARVEDILOL 3.125 MG TABLET (FP) PO ONE (17:40)
--- NOTE | 2020-01-16 18:00 | CONSULT ---
Consult Consult Specialty:: Nephrology Reason for Consultation:: htn and hypercalcemia - History of Present Illness Chief Complaint: chest pain History of Present Illness: Pt is a 64 year old male with pmhx of htn, hld and dm who presented with chest pain. Pain was pressure like and in his med chest. It as associated with nausea and vomiting. He was found to be hypertensive. He was also found to be hypercalcemic. He does drink alcohol often and he does smoke marijuana. He does not always take his meds. He denies dysuria or hematuria. - History Source History Provided By: Patient - Past Medical History Cardio/Vascular: Yes: HTN, Hyperlipdemia Renal/: Yes: BPH Endocrine: Yes: Diabetes Mellitus - Alcohol/Substance Use Hx Alcohol Use: Yes (OCCAS) Number of Drinks Daily: 1 History of Substance Use: reports: Marijuana - Smoking History Smoking history: Current every day smoker Have you smoked in the past 12 months: Yes Aproximately how many cigarettes per day: 5 If you are a former smoker, when did you quit?: 1987 - Social History ADL: Independent History of Recent Travel: No Home Medications - Allergies Allergies/Adverse Reactions: Allergies Allergy/AdvReac Type Severity Reaction Status Date / Time No Known Drug Allergies Allergy Verified 06/30/15 09:37 - Home Medications Home Medications: Ambulatory Orders Lisinopril [Prinivil] 10 mg PO DAILY 10/05/12 Sitagliptin Phos/Metformin HCl [Janumet 50-1,000 mg Tablet] 50 - 1,000 each PO BID 10/05/12 Atorvastatin Ca [Lipitor] 20 mg PO HS 01/15/20 Family Medical History Family History: Denies Review of Systems - Review of Systems Constitutional: reports: Malaise Eyes: reports: No Symptoms HENT: reports: No Symptoms Neck: reports: No Symptoms Cardiovascular: reports: Chest Pain. denies: Edema Respiratory: reports: No Symptoms Gastrointestinal: reports: No Symptoms Genitourinary: reports: No Symptoms Musculoskeletal: reports: No Symptoms Integumentary: reports: No Symptoms Neurological: reports: No Symptoms Endocrine: reports: No Symptoms Hematology/Lymphatic: reports: No Symptoms Psychiatric: reports: No Symptoms Physical Exam Vital Signs: Vital Signs Temperature 98.6 F 01/16/20 17:00 Pulse Rate 82 01/16/20 17:00 Respiratory Rate 20 01/16/20 17:00 Blood Pressure 152/107 H 06/29/20 17:00 O2 Sat by Pulse Oximetry (%) 99 01/16/20 09:00 Constitutional: Yes: Calm Eyes: Yes: Conjunctiva Clear HENT: Yes: Atraumatic Cardiovascular: Yes: S1, S2 Respiratory: Yes: CTA Bilaterally Gastrointestinal: Yes: Soft Renal/: Yes: WNL Musculoskeletal: Yes: WNL Edema: No Neurological: Yes: Oriented Psychiatric: Yes: Oriented Labs: CBC, BMP 01/16/20 06:05 01/16/20 06:05 Imaging - Results Chest X-ray: Report Reviewed Problem List - Problems (1) Hypercalcemia Code(s): E83.52 - HYPERCALCEMIA (2) Atypical chest pain Code(s): R07.89 - OTHER CHEST PAIN (3) Chest pain Code(s): R07.9 - CHEST PAIN, UNSPECIFIED Qualifiers: Chest pain type: unspecified Qualified Code(s): R07.9 - Chest pain, unspecified (4) Diabetes 1.5, managed as type 2 Code(s): E13.9 - OTHER SPECIFIED DIABETES MELLITUS WITHOUT COMPLICATIONS (5) Hyperlipidemia Code(s): E78.5 - HYPERLIPIDEMIA, UNSPECIFIED Qualifiers: Hyperlipidemia type: pure hypercholesterolemia Qualified Code(s): E78.00 - Pure hypercholesterolemia, unspecified; E78.0 - Pure hypercholesterolemia Assessment/Plan Current Medications Generic Name Dose Route Start Last Admin Trade Name Freq PRN Reason Stop Dose Admin Acetaminophen 650 mg 01/14/20 12:36 Tylenol - PO Q6H PRN PAIN LEVEL 4 - 6 Al Hydroxide/Mg Hydroxide 30 ml 01/14/20 12:44 Mylanta Oral Suspension - PO Q6H PRN DYSPEPSIA Aspirin 81 mg 01/15/20 10:00 01/16/20 09:16 Ecotrin - PO 81 mg DAILY BUSHRA Administration Atorvastatin Calcium 40 mg 01/15/20 22:00 01/15/20 21:55 Lipitor - PO 40 mg HS BUSHRA Administration Carvedilol 12.5 mg 01/16/20 22:00 Coreg - PO BID BUSHRA Enoxaparin Sodium 40 mg 01/14/20 18:45 01/16/20 09:16 Lovenox - SQ 40 mg DAILY BUSHRA Administration Sodium Chloride 1,000 mls @ 75 mls/hr 01/15/20 09:45 01/16/20 11:40 Normal Saline - IV 75 mls/hr ASDIR BUSHRA Administration Insulin Aspart 1 vial 01/14/20 16:30 01/16/20 16:57 Novolog Vial Sliding Scale - SQ Not Given ACHS [facility] Protocol Lisinopril 20 mg 01/16/20 10:36 Prinivil PO DAILY BUSHRA Nicotine 14 mg 01/15/20 10:15 01/16/20 09:17 Nicoderm Patch - TD 14 mg DAILY BUSHRA Administration Ondansetron HCl 4 mg 01/14/20 12:36 01/15/20 21:55 Zofran Injection IVPUSH 4 mg Q6H PRN Administration NAUSEA Laboratory Tests 11/29/11 10/05/12 09/25/14 19:30 08:35 12:40 Calcium 10.2 10.1 10.8 H Vitamin D Level Urine Protein Urine Blood U Marijuana (THC) Screen 10/31/14 03/16/15 03/18/15 16:30 23:50 06:00 Calcium 10.2 H 10.1 9.4 Vitamin D Level Urine Protein Urine Blood U Marijuana (THC) Screen 06/30/15 01/14/20 01/15/20 10:09 08:00 06:00 Calcium 9.6 10.5 H 10.7 H Vitamin D Level Urine Protein Urine Blood U Marijuana (THC) Screen 01/15/20 01/15/20 01/16/20 06:00 06:00 06:05 Calcium 10.3 H Vitamin D Level Urine Protein 2+ H Urine Blood Trace-intact U Marijuana (THC) Screen Positive A* 01/16/20 13:05 Calcium Vitamin D Level 80.7 Urine Protein Urine Blood U Marijuana (THC) Screen Impression 1. HTN 2. hypercalcemia 3. dm 4. chest pain 5. hld 6. active smoker 7. marijuana use Plan - cont bp meds and titrate as needed - monitor bp - calcium was elevated in the past as well - follow pth level - pt with active urinary sediment, check spep - repeat labs in am - will follow - d/c supplements - discussed with medical team - repeat ua
[2020-01-16] MEDS: ONDANSETRON 4 MG/2 ML VIAL IVPUSH PRN (18:06)
[2020-01-16] MEDS: ATORVASTATIN CA 40 MG TABLET (FP) PO SCH (22:02)
[2020-01-16] MEDS: CARVEDILOL 12.5 MG TABLET (FP) PO SCH (22:02)
[2020-01-17] MEDS: INSULIN SLIDING SCALE (NOVOLOG) 1 VIAL SQ SCH ×4 (06:22→21:37)
--- NOTE | 2020-01-17 06:46 | PN ---
Progress Note (short form) - Note Progress Note: Chief Complaint: Events noted, notes reviewed, resting in bed, denies any chest discomfort, denies any dyspnea, blood pressure measurements improved but not at goal as of yet History of Present Illness: Seen and examined on telemetry. Events noted, notes reviewed, resting in bed, denies any chest discomfort, denies any dyspnea, blood pressure measurements improved but not at goal as of yet Spoke with patient's niece who is in [place] via a smart phone application, reviewed his current condition and planned treatment/management (Patient's niece is a nurse) Echocardiography study report noted, essentially normal study with normal LVEF Medications: Home Medication List Medication Instructions Recorded Confirmed Type Lisinopril [Prinivil] 10 mg PO DAILY 10/05/12 01/15/20 History Sitagliptin Phos/Metformin HCl 50 - 1,000 each PO BID 10/05/12 01/15/20 History [Janumet 50-1,000 mg Tablet] Atorvastatin Ca [Lipitor] 20 mg PO HS 01/15/20 01/15/20 History Active Medications Generic Name Dose Route Start Last Admin Trade Name Freq PRN Reason Stop Dose Admin Acetaminophen 650 mg 01/14/20 12:36 Tylenol - PO Q6H PRN PAIN LEVEL 4 - 6 Al Hydroxide/Mg Hydroxide 30 ml 01/14/20 12:44 Mylanta Oral Suspension - PO Q6H PRN DYSPEPSIA Aspirin 81 mg 01/15/20 10:00 01/16/20 09:16 Ecotrin - PO 81 mg DAILY BUSHRA Administration Atorvastatin Calcium 40 mg 01/15/20 22:00 01/16/20 22:02 Lipitor - PO 40 mg HS BUSHRA Administration Carvedilol 12.5 mg 01/16/20 22:00 01/16/20 22:02 Coreg - PO 12.5 mg BID BUSHRA Administration Enoxaparin Sodium 40 mg 01/14/20 18:45 01/16/20 09:16 Lovenox - SQ 40 mg DAILY BUSHRA Administration Sodium Chloride 1,000 mls @ 75 mls/hr 01/15/20 09:45 01/16/20 11:40 Normal Saline - IV 75 mls/hr ASDIR BUSHRA Administration Insulin Aspart 1 vial 01/14/20 16:30 01/17/20 06:22 Novolog Vial Sliding Scale - SQ Not Given ACHS BUSHRA Protocol Lisinopril 20 mg 01/16/20 10:36 Prinivil PO DAILY [facility] Nicotine 14 mg 01/15/20 10:15 01/16/20 09:17 Nicoderm Patch - TD 14 mg DAILY BUSHRA Administration Ondansetron HCl 4 mg 01/14/20 12:36 01/16/20 18:06 Zofran Injection IVPUSH 4 mg Q6H PRN Administration NAUSEA Review of Systems - Review of Systems Constitutional: denies: Fever or Chills Cardiovascular: As noted above Respiratory: denies: Cough or Sputum Production Gastrointestinal: denies: Nausea, Vomiting, Diarrhea, Constipation, Abdominal Pain Neurological: denies: Headaches Vital Signs: Last Vital Signs Temp Pulse Resp BP Pulse Ox 98.3 F 80 20 136/94 98 01/17/20 06:00 01/17/20 06:00 01/17/20 06:00 01/17/20 06:00 01/16/20 21:00 Intake & Output 01/14/20 01/15/20 01/16/20 01/17/20 23:59 23:59 23:59 23:59 Intake Total 0548 868 6606 525 Output Total 400 1800 Balance 1400 525 -300 525 Weight 164 lb 14.4 oz 164 lb Neck: Supple Negative JVD No Bruit Respiratory: Clear to auscultation and percussion Cardiovascular: S1 S2 Regular Rate and Rhythm Gastrointestinal: Soft Benign Normal Bowel Sounds Ext: Negative Edema Labs: CBC, BMP 01/17/20 07:15 01/17/20 07:15 CBC, BMP 01/16/20 06:05 01/16/20 06:05 Hepatic Panel Total Bilirubin 1.0 mg/dL (0.2-1) 01/16/20 06:05 AST 40 U/L (15-37) H 01/16/20 06:05 ALT 45 U/L (13-61) 01/16/20 06:05 Alkaline Phosphatase 77 U/L (45-117) 01/16/20 06:05 Albumin 3.8 g/dl (3.4-5.0) 01/16/20 06:05 Assessment/Plan ASSESSMENT: 1. Chest pain syndrome, clinical presentation of which is atypical for coronary artery disease and angina pectoris 2. Hypertensive cardiovascular disease, hypertensive urgency related to medical therapy administration noncompliance 3. Diabetes mellitus 4. Hypercholesterolemia 5. Nausea vomiting, clinically resolved 6. Tobacco abuse 7. Substance abuse/marijuana PLAN: 1. Continue Lisinopril therapy and dose titration as needed 2. Continue Coreg therapy and dose titration as needed 3. Continue Lipitor therapy 4. Continue Ecotrin therapy 5. Patient was strongly counseled smoking cessation and abstinence 6. Patient was strongly counseled substance abuse cessation Additional cardiovascular evaluation can be performed on an outpatient basis including myocardial perfusion imaging study Maude Quevedo M.D.
[2020-01-17 08:01] LABS: HEMATOCRIT 49.9 % (35.4-49); HEMOGLOBIN 16.8 GM/dL (11.7-16.9); MCH 32.6 pg (25.7-33.7); MCHC 33.7 g/dl (32.0-35.9); MEAN CELL VOLUME 96.8 fl (80-96); MEAN PLT VOLUME 9.5 fl (7.5-11.1); PLATELET COUNT 251 K/MM3 (134-434); RBC 5.16 M/mm3 (4.00-5.60); RDW 13.4 % (11.9-15.9); WHITE BLOOD COUNT 10.5 K/mm3 (4.0-10.0)
[2020-01-17 08:22] LABS: BLOOD UREA NITROGEN 16.8 mg/dL (7-18); CREATININE 1.3 mg/dL (0.55-1.3); MAGNESIUM 2.5 mg/dL (1.8-2.4); POTASSIUM 3.9 mmol/L (3.5-5.1)
[2020-01-17] MEDS: NICOTINE 14 MG/24 HOURS TOPICAL PATCH TD SCH (09:03)
[2020-01-17] MEDS: ENOXAPARIN NA (PORCINE) 40 MG/0.4 ML DISP.SYRIN SQ SCH (09:03)
[2020-01-17] MEDS: CARVEDILOL 12.5 MG TABLET (FP) PO SCH (09:03)
[2020-01-17] MEDS: ASPIRIN COATED 81 MG TABLET.EC PO SCH (09:03)
[2020-01-17] MEDS: LISINOPRIL 20 MG TABLET (FP) PO SCH (09:03)
--- NOTE | 2020-01-17 09:57 | PN ---
Teaching Attending Note Name of Resident: Essie Anotine ATTENDING PHYSICIAN STATEMENT I saw and evaluated the patient. I reviewed the resident's note and discussed the case with the resident. I agree with the resident's findings and plan as documented. SUBJECTIVE: Patient is comfortable with acute distress. OBJECTIVE: Vital Signs Temperature 98.3 F 01/17/20 06:00 Pulse Rate 80 01/17/20 06:00 Respiratory Rate 20 01/17/20 06:00 Blood Pressure 136/94 01/17/20 06:00 O2 Sat by Pulse Oximetry (%) 98 01/16/20 21:00 PE: per resident's note CBCD WBC 10.5 K/mm3 (4.0-10.0) H 01/17/20 07:15 RBC 5.16 M/mm3 (4.00-5.60) 01/17/20 07:15 Hgb 16.8 GM/dL (11.7-16.9) 01/17/20 07:15 Hct 49.9 % (35.4-49) H 01/17/20 07:15 MCV 96.8 fl (80-96) H 01/17/20 07:15 MCHC 33.7 g/dl (32.0-35.9) 01/17/20 07:15 RDW 13.4 % (11.9-15.9) 01/17/20 07:15 Plt Count 251 K/MM3 (134-434) 01/17/20 07:15 MPV 9.5 fl (7.5-11.1) 01/17/20 07:15 CMP Sodium 134 mmol/L (136-145) L 01/17/20 07:15 Potassium 3.9 mmol/L (3.5-5.1) 01/17/20 07:15 Chloride 99 mmol/L (98-107) 01/17/20 07:15 Carbon Dioxide 28 mmol/L (21-32) 01/17/20 07:15 Anion Gap 7 MMOL/L (8-16) L 01/17/20 07:15 BUN 16.8 mg/dL (7-18) 01/17/20 07:15 Creatinine 1.3 mg/dL (0.55-1.3) 01/17/20 07:15 Random Glucose 179 mg/dL (74-106) H 01/17/20 07:15 Calcium 11.0 mg/dL (8.5-10.1) H 01/17/20 07:15 Total Bilirubin 1.0 mg/dL (0.2-1) 01/16/20 06:05 AST 40 U/L (15-37) H 01/16/20 06:05 ALT 45 U/L (13-61) 01/16/20 06:05 Alkaline Phosphatase 77 U/L (45-117) 01/16/20 06:05 Total Protein 7.5 g/dl (6.4-8.2) 01/16/20 06:05 Albumin 3.8 g/dl (3.4-5.0) 01/16/20 06:05 CARDIAC ENZYMES Creatine Kinase 408 U/L (26-308) H 01/15/20 18:00 Troponin I < 0.02 ng/ml (0.00-0.05) 01/15/20 18:00 Current Medications Generic Name Dose Route Start Last Admin Trade Name Freq PRN Reason Stop Dose Admin Acetaminophen 650 mg 01/14/20 12:36 Tylenol - PO Q6H PRN PAIN LEVEL 4 - 6 Al Hydroxide/Mg Hydroxide 30 ml 01/14/20 12:44 Mylanta Oral Suspension - PO Q6H PRN DYSPEPSIA Aspirin 81 mg 01/15/20 10:00 01/17/20 09:03 Ecotrin - PO 81 mg DAILY BUSHRA Administration Atorvastatin Calcium 40 mg 01/15/20 22:00 01/16/20 22:02 Lipitor - PO 40 mg HS BUSHRA Administration Carvedilol 12.5 mg 01/16/20 22:00 01/17/20 09:03 Coreg - PO 12.5 mg BID BUSHRA Administration Enoxaparin Sodium 40 mg 01/14/20 18:45 01/17/20 09:03 Lovenox - SQ 40 mg DAILY BUSHRA Administration Sodium Chloride 1,000 mls @ 75 mls/hr 01/15/20 09:45 01/16/20 11:40 Normal Saline - IV 75 mls/hr ASDIR BUSHRA Administration Insulin Aspart 1 vial 01/14/20 16:30 01/17/20 06:22 Novolog Vial Sliding Scale - SQ Not Given ACHS BUSHRA Protocol Lisinopril 20 mg 01/16/20 10:36 01/17/20 09:03 Prinivil PO 20 mg DAILY BUSHRA Administration Nicotine 14 mg 01/15/20 10:15 01/17/20 09:03 Nicoderm Patch - TD 14 mg DAILY BUSHRA Administration Ondansetron HCl 4 mg 01/14/20 12:36 01/16/20 18:06 Zofran Injection IVPUSH 4 mg Q6H PRN Administration NAUSEA Home Medications Medication Instructions Recorded Lisinopril [Prinivil] 10 mg PO DAILY 10/05/12 Sitagliptin Phos/Metformin HCl 50 - 1,000 each PO BID 10/05/12 [Janumet 50-1,000 mg Tablet] Atorvastatin Ca [Lipitor] 20 mg PO HS 01/15/20 EKG: Sinus rhythm with 1sr degree AVB, LAE, rate 87, nonspecfic T-wave abnormality. ECHO: with doppler: EJF=65% US of gallbladder: cholelithiais is noted without sonographic evidence of acute cholecystitis. no billiary tract dilatation. Abdomen flat and upright: no acute pathology ASSESSMENT AND PLAN: This patient is a 64yom with PMhx of HTN, HLP, DM , daily marijuana use, non compliance, who presented with CP, N/V . He was admitted for Hypertensive urgency. # HTN urgency: non compliance with his meds, continue lisinopril increased from 10 mg daily to 20 , coreg, continue to monitor # N/v: likely cyclic vomiting sx due to marijuana use . # Uncontrolled T2DM : on SSi with coverage , does not like to take Janumet # Hypercalcemia :will check PTH level , elevated Vit D 80's the level , continue IVF # HLP: cont statin # Cp resolved . EKG reviewed. # Biliary stones, no cholecystitis . out pt surgical f/u DVT Px: Lovenox sq
--- NOTE | 2020-01-17 10:39 | ECHO ---
Name: TOVA HAND Exam:Adult Echocardiogram Study Date: 01/17/2020 09:51 AM Age: 64 yrs Reason For Study: Chest pain Height: 71 in Weight: 168 lb BSA: 2.0 m2 MMode/2D Measurements & Calculations RVDd: 3.0 cm Ao root diam: 2.9 cm IVSd: 1.0 cm LA dimension: 3.1 cm LVIDd: 4.2 cm ACS: 1.7 cm LVIDs: 2.9 cm LVPWd: 0.92 cm EDV(Teich): 76.6 ml LVOT diam: 2.0 cm ESV(Teich): 33.3 ml LAV (MOD-bp): 34.0 ml TAPSE: 2.1 cm RV S Andre: 12.3 cm/sec Doppler Measurements & Calculations MV E max andre: 41.0 cm/sec Ao V2 max: 130.3 cm/sec MV A max andre: 74.5 cm/sec Ao max P.8 mmHg MV E/A: 0.55 Ao V2 mean: 91.4 cm/sec MV dec time: 0.31 sec Ao mean P.8 mmHg Ao V2 VTI: 23.5 cm JAHAIRA(I,D): 2.4 cm2 JAHAIRA(V,D): 2.3 cm2 LV V1 max P.5 mmHg SV(LVOT): 55.8 ml LV V1 mean P.7 mmHg LV V1 max: 93.8 cm/sec LV V1 mean: 58.9 cm/sec LV V1 VTI: 17.6 cm PA V2 max: 114.0 cm/sec Med Peak E' Andre: 3.3 cm/sec PA max P.2 mmHg Med E/e': 12.4 PA acc slope: 923.6 cm/sec2 Lat Peak E' Andre: 6.5 cm/sec PA acc time: 0.12 sec Lat E/e': 6.3 PA pr(Accel): 25.1 mmHg Pulm Sys Andre: 55.3 cm/sec Pulm Rose Andre: 32.1 cm/sec Pulm S/D: 1.7 Tech Comments TDS. Patient very thin. Procedure A complete two-dimensional transthoracic echocardiogram was performed (2D, M-mode, Doppler and color flow Doppler). The patient was in normal sinus rhythm during the exam. Left Ventricle The left ventricular size, thickness and function are normal. Ejection Fraction = 65%. E/A reversal c onsistent with but not diagnostic of poor LV compliance. The left ventricular wall motion is normal. Right Ventricle The right ventricle is normal in size and function. Atria Normal left and right atrial size and function. Mitral Valve The mitral valve is normal in structure and function. There is trace mitral regurgitation. Tricuspid Valve The tricuspid valve is normal in structure and function. There was insufficient TR detected to calcul ate RV systolic pressure. Aortic Valve The aortic valve is normal in structure and function. Pulmonic Valve The pulmonic valve is normal in structure and function. Great Vessels The aortic root is normal size. Pericardium/Pleura There is no pericardial effusion. There is no pleural effusion. Interpretation Summary This was essentially a normal study. The left ventricular size, thickness and function are normal Ejection Fraction = 65%. MD Jovan Prater 01/17/2020 10:39 AM
[2020-01-17] MEDS: SODIUM CHLORIDE 1,000 ML IV SCH ×3 (11:08→18:27)
--- NOTE | 2020-01-17 13:02 | PN ---
Physical Exam: SUBJECTIVE: Patient seen and examined. No acuteo vernight events, no telemetry events overnight. OBJECTIVE: Vital Signs Period Temp Pulse Resp BP Sys/Rose Pulse Ox Last 24 Hr 98 F-98.7 F 76-87 18-20 136-167/93-112 98-98 GENERAL: The patient is awake, alert, and fully oriented, in no acute distress. LUNGS: Breath sounds equal, ctabl, no wheezes, no crackles, no accessory muscle use. HEART: Regular rate and rhythm, S1, S2 without murmur, rub or gallop. No chest wall tenderness. ABDOMEN: Soft, ntnd, + bowel sounds, no guarding. EXTREMITIES: 2+ pulses, warm, well-perfused, no edema. NEUROLOGICAL: Cranial nerves II through XII grossly intact. PSYCH: Normal mood, normal affect. SKIN: Warm, dry, normal turgor, no rashes or lesions noted Laboratory Results - last 24 hr 01/14/20 01/14/20 01/16/20 12:30 12:30 13:05 WBC RBC Hgb Hct MCV MCH MCHC RDW Plt Count MPV Sodium Potassium Chloride Carbon Dioxide Anion Gap BUN Creatinine Est GFR (CKD-EPI)AfAm Est GFR (CKD-EPI)NonAf POC Glucometer Random Glucose Calcium Phosphorus Magnesium Vitamin D Level 80.7 COVID-19 ([facility]) Cancelled SARS-CoV-2 IgM Ab Negative 01/16/20 01/16/20 01/17/20 16:56 22:06 06:15 WBC RBC Hgb Hct MCV MCH MCHC RDW Plt Count MPV Sodium Potassium Chloride Carbon Dioxide Anion Gap BUN Creatinine Est GFR (CKD-EPI)AfAm Est GFR (CKD-EPI)NonAf POC Glucometer 198 177 190 Random Glucose Calcium Phosphorus Magnesium Vitamin D Level COVID-19 ([facility]) SARS-CoV-2 IgM Ab 01/17/20 01/17/20 01/17/20 07:15 07:15 12:05 WBC 10.5 H RBC 5.16 Hgb 16.8 Hct 49.9 H MCV 96.8 H MCH 32.6 MCHC 33.7 RDW 13.4 Plt Count 251 MPV 9.5 Sodium 134 L Potassium 3.9 Chloride 99 Carbon Dioxide 28 Anion Gap 7 L BUN 16.8 Creatinine 1.3 Est GFR (CKD-EPI)AfAm 67.30 Est GFR (CKD-EPI)NonAf 58.07 POC Glucometer 204 Random Glucose 179 H Calcium 11.0 H Phosphorus 2.0 L Magnesium 2.5 H Vitamin D Level COVID-19 ([facility]) SARS-CoV-2 IgM Ab Active Medications Generic Name Dose Route Start Last Admin Trade Name Freq PRN Reason Stop Dose Admin Acetaminophen 650 mg 01/14/20 12:36 Tylenol - PO Q6H PRN PAIN LEVEL 4 - 6 Al Hydroxide/Mg Hydroxide 30 ml 01/14/20 12:44 Mylanta Oral Suspension - PO Q6H PRN DYSPEPSIA Aspirin 81 mg 01/15/20 10:00 01/17/20 09:03 Ecotrin - PO 81 mg DAILY [facility] Administration Atorvastatin Calcium 40 mg 01/15/20 22:00 01/16/20 22:02 Lipitor - PO 40 mg HS [facility] Administration Carvedilol 12.5 mg 01/16/20 22:00 01/17/20 09:03 Coreg - PO 12.5 mg BID [facility] Administration Enoxaparin Sodium 40 mg 01/14/20 18:45 01/17/20 09:03 Lovenox - SQ 40 mg DAILY [facility] Administration Sodium Chloride 1,000 mls @ 75 mls/hr 01/15/20 09:45 01/17/20 11:08 Normal Saline - IV Not Given ASDIR [facility] Insulin Aspart 1 vial 01/14/20 16:30 01/17/20 12:22 Novolog Vial Sliding Scale - SQ 2 unit ACHS [facility] Administration Protocol Lisinopril 20 mg 01/16/20 10:36 01/17/20 09:03 Prinivil PO 20 mg DAILY [facility] Administration Nicotine 14 mg 01/15/20 10:15 01/17/20 09:03 Nicoderm Patch - TD 14 mg DAILY [facility] Administration Ondansetron HCl 4 mg 01/14/20 12:36 01/16/20 18:06 Zofran Injection IVPUSH 4 mg Q6H PRN Administration NAUSEA ASSESSMENT/PLAN: 64 y.o. M PMH HTN, HLD, DM, nicotine dependence, daily marijuana use (noncompliant with all medications, has not picked up since 05/2019) who presented to the ED with chest pain. #Atypical chest pain -EKG NSR; LAE; LVH; 1st degree AV block; T wave changes. -chest pain has resolved; received in ED pepcid 20mg, 30m mylanta, 325mg ASA -troponins negative x 2 -echo WNL -cardiology following Dr Horne -smoking cessation education #HTN -continue lisinopril -carvedlilol 6.25 bid added, uptitrate as tolerated #Hypercalcemia -r/o hyperparathyroidism, f/u PTH -Ca 11 today -Vit D 80 wnl -outpatient MM workup #Abdominal distension -KUB negative for acute pathology -improved on todays exam #HLD -ASCVD risk 56%- bello benefit from high intensity statin -continue lipitor 40mg daily #DM -HbA1c 9.0%; pt noncompliant w/ medications -ISS -BGMs ACHS -endocrine f/u #Nicotine dependence -nicotine patch prn #Marijuana abuse -I have counselled patient on the risks of continue marijuana smoking. Stressed importance of smoking cessation. #FEN -NS @75cc/hr -trend & replete lytes prn -diabetic, na controlled diet #Dispo telemetry Visit type - Emergency Visit Emergency Visit: No - New Patient This patient is new to me today: No - Critical Care Critical Care patient: No ATTENDING PHYSICIAN STATEMENT I saw and evaluated the patient. I reviewed the resident's note and discussed the case with the resident. I agree with the resident's findings and plan as documented. SUBJECTIVE: OBJECTIVE: ASSESSMENT AND PLAN:
[2020-01-17 15:49] LABS: PH,URINE 6.5 (5.0-8.0); URINE APPEARANCE CLEAR; URINE BILIRUBIN NEGATIVE (NEGATIVE); URINE COLOR YELLOW; URINE GLUCOSE (UA) 1+ (NEGATIVE); URINE KETONE 1+ (NEGATIVE); URINE LEUK ESTERASE NEGATIVE (NEGATIVE); URINE NITRITE NEGATIVE (NEGATIVE); URINE PROTEIN NEGATIVE (NEGATIVE)
--- NOTE | 2020-01-17 17:50 | PN ---
Progress Note, Physician History of Present Illness: Pt seen and examined at bedside. He is awake and alert. He denies shortness of breath. - Current Medication List Current Medications: Active Medications Acetaminophen (Tylenol -) 650 mg PO Q6H PRN PRN Reason: PAIN LEVEL 4 - 6 Al Hydroxide/Mg Hydroxide (Mylanta Oral Suspension -) 30 ml PO Q6H PRN PRN Reason: DYSPEPSIA Aspirin (Ecotrin -) 81 mg PO DAILY [facility] Last Admin: 01/17/20 09:03 Dose: 81 mg Documented by: Atorvastatin Calcium (Lipitor -) 40 mg PO HS [facility] Last Admin: 01/16/20 22:02 Dose: 40 mg Documented by: Carvedilol (Coreg -) 12.5 mg PO BID [facility] Last Admin: 01/17/20 09:03 Dose: 12.5 mg Documented by: Enoxaparin Sodium (Lovenox -) 40 mg SQ DAILY [facility] Last Admin: 01/17/20 09:03 Dose: 40 mg Documented by: Sodium Chloride (Normal Saline -) 1,000 mls @ 75 mls/hr IV ASDIR [facility] Last Admin: 01/17/20 15:55 Dose: 75 mls/hr Documented by: Insulin Aspart (Novolog Vial Sliding Scale -) 1 vial SQ [facility]; Protocol Last Admin: 01/17/20 12:22 Dose: 2 unit Documented by: Lisinopril (Prinivil) 20 mg PO DAILY [facility] Last Admin: 01/17/20 09:03 Dose: 20 mg Documented by: Nicotine (Nicoderm Patch -) 14 mg TD DAILY [facility] Last Admin: 01/17/20 09:03 Dose: 14 mg Documented by: Ondansetron HCl (Zofran Injection) 4 mg IVPUSH Q6H PRN PRN Reason: NAUSEA Last Admin: 01/16/20 18:06 Dose: 4 mg Documented by: - Objective Vital Signs: Vital Signs Temperature 98.1 F 01/17/20 17:00 Pulse Rate 75 01/17/20 17:00 Respiratory Rate 20 01/17/20 17:00 Blood Pressure 156/110 H 01/17/20 17:00 O2 Sat by Pulse Oximetry (%) 98 01/17/20 09:00 Constitutional: Yes: Calm Eyes: Yes: Conjunctiva Clear HENT: Yes: Atraumatic Neck: Yes: Supple Cardiovascular: Yes: S1, S2 Respiratory: Yes: CTA Bilaterally Genitourinary: Yes: WNL Musculoskeletal: Yes: WNL Edema: No Neurological: Yes: Oriented Psychiatric: Yes: Oriented Labs: CBC, BMP 01/17/20 07:15 01/17/20 07:15 Problem List - Problems (1) Hypercalcemia Code(s): E83.52 - HYPERCALCEMIA (2) Atypical chest pain Code(s): R07.89 - OTHER CHEST PAIN (3) Chest pain Code(s): R07.9 - CHEST PAIN, UNSPECIFIED Qualifiers: Chest pain type: unspecified Qualified Code(s): R07.9 - Chest pain, unspecified (4) Diabetes 1.5, managed as type 2 Code(s): E13.9 - OTHER SPECIFIED DIABETES MELLITUS WITHOUT COMPLICATIONS (5) Hyperlipidemia Code(s): E78.5 - HYPERLIPIDEMIA, UNSPECIFIED Qualifiers: Hyperlipidemia type: pure hypercholesterolemia Qualified Code(s): E78.00 - Pure hypercholesterolemia, unspecified; E78.0 - Pure hypercholesterolemia Assessment/Plan Current Medications Generic Name Dose Route Start Last Admin Trade Name Freq PRN Reason Stop Dose Admin Acetaminophen 650 mg 01/14/20 12:36 Tylenol - PO Q6H PRN PAIN LEVEL 4 - 6 Al Hydroxide/Mg Hydroxide 30 ml 01/14/20 12:44 Mylanta Oral Suspension - PO Q6H PRN DYSPEPSIA Aspirin 81 mg 01/15/20 10:00 01/17/20 09:03 Ecotrin - PO 81 mg DAILY [facility] Administration Atorvastatin Calcium 40 mg 01/15/20 22:00 01/16/20 22:02 Lipitor - PO 40 mg HS [facility] Administration Carvedilol 12.5 mg 01/16/20 22:00 01/17/20 09:03 Coreg - PO 12.5 mg BID [facility] Administration Enoxaparin Sodium 40 mg 01/14/20 18:45 01/17/20 09:03 Lovenox - SQ 40 mg DAILY [facility] Administration Sodium Chloride 1,000 mls @ 75 mls/hr 01/15/20 09:45 01/17/20 15:55 Normal Saline - IV 75 mls/hr ASDIR [facility] Administration Insulin Aspart 1 vial 01/14/20 16:30 01/17/20 12:22 Novolog Vial Sliding Scale - SQ 2 unit ACHS [facility] Administration Protocol Lisinopril 20 mg 01/16/20 10:36 01/17/20 09:03 Prinivil PO 20 mg DAILY [facility] Administration Nicotine 14 mg 01/15/20 10:15 01/17/20 09:03 Nicoderm Patch - TD 14 mg DAILY [facility] Administration Ondansetron HCl 4 mg 01/14/20 12:36 01/16/20 18:06 Zofran Injection IVPUSH 4 mg Q6H PRN Administration NAUSEA Impression 1. HTN 2. hypercalcemia 3. dm 4. chest pain 5. hld 6. active smoker 7. marijuana use 8. weight loss - about 70 pounds Plan - calcium rising - start fluids - increase coreg dose - recent weight loss - check spep - follow pth
[2020-01-17] MEDS ORDERED: FUROSEMIDE 20 MG TABLET (FP) PO ONE (18:30)
[2020-01-17] MEDS: CARVEDILOL 25 MG TABLET (FP) PO SCH (21:37)
[2020-01-17] MEDS: ATORVASTATIN CA 40 MG TABLET (FP) PO SCH (21:37)
[2020-01-17] MEDS: NAPH,MB-DB/K PH,MBDB POWDER PACKET PO SCH (21:37)
[2020-01-18] MEDS: INSULIN SLIDING SCALE (NOVOLOG) 1 VIAL SQ SCH ×3 (06:27→17:39)
[2020-01-18] MEDS: NICOTINE 14 MG/24 HOURS TOPICAL PATCH TD SCH (09:30)
[2020-01-18] MEDS: LISINOPRIL 20 MG TABLET (FP) PO SCH (09:30)
[2020-01-18] MEDS: CARVEDILOL 25 MG TABLET (FP) PO SCH (09:30)
[2020-01-18] MEDS: NAPH,MB-DB/K PH,MBDB POWDER PACKET PO SCH (09:30)
[2020-01-18] MEDS: ENOXAPARIN NA (PORCINE) 40 MG/0.4 ML DISP.SYRIN SQ SCH (09:31)
[2020-01-18] MEDS: ASPIRIN COATED 81 MG TABLET.EC PO SCH (09:31)
[2020-01-18 10:07] LABS: HEMATOCRIT 45.8 % (35.4-49); HEMOGLOBIN 15.4 GM/dL (11.7-16.9); MCHC 33.7 g/dl (32.0-35.9); MEAN CELL VOLUME 97.8 fl (80-96); MEAN PLT VOLUME 9.6 fl (7.5-11.1); PLATELET COUNT 231 K/MM3 (134-434); RBC 4.68 M/mm3 (4.00-5.60); RDW 13.8 % (11.9-15.9); WHITE BLOOD COUNT 8.3 K/mm3 (4.0-10.0)
--- NOTE | 2020-01-18 10:28 | PN ---
Progress Note, Physician History of Present Illness: Denies any chest discomfort, denies any dyspnea, blood pressure measurements improved and now at goal. Tolerates liquid diet without nausea and emesis. Elevated PTH noted. - Current Medication List Current Medications: Active Medications Acetaminophen (Tylenol -) 650 mg PO Q6H PRN PRN Reason: PAIN LEVEL 4 - 6 Al Hydroxide/Mg Hydroxide (Mylanta Oral Suspension -) 30 ml PO Q6H PRN PRN Reason: DYSPEPSIA Aspirin (Ecotrin -) 81 mg PO DAILY [facility] Last Admin: 01/18/20 09:31 Dose: 81 mg Documented by: Atorvastatin Calcium (Lipitor -) 40 mg PO HS [facility] Last Admin: 01/17/20 21:37 Dose: 40 mg Documented by: Carvedilol (Coreg -) 25 mg PO BID [facility] Last Admin: 01/18/20 09:30 Dose: 25 mg Documented by: Enoxaparin Sodium (Lovenox -) 40 mg SQ DAILY [facility] Last Admin: 01/18/20 09:31 Dose: 40 mg Documented by: Sodium Chloride (Normal Saline -) 1,000 mls @ 150 mls/hr IV ASDIR [facility] Last Admin: 01/17/20 18:27 Dose: 150 mls/hr Documented by: Insulin Aspart (Novolog Vial Sliding Scale -) 1 vial SQ ACHS [facility]; Protocol Last Admin: 01/18/20 06:27 Dose: Not Given Documented by: Lisinopril (Prinivil) 20 mg PO DAILY [facility] Last Admin: 01/18/20 09:30 Dose: 20 mg Documented by: Nicotine (Nicoderm Patch -) 14 mg TD DAILY [facility] Last Admin: 01/18/20 09:30 Dose: 14 mg Documented by: Ondansetron HCl (Zofran Injection) 4 mg IVPUSH Q6H PRN PRN Reason: NAUSEA Last Admin: 01/16/20 18:06 Dose: 4 mg Documented by: Potassium Phos/Sodium Phos (Phos-Nak Packet -) 1 packet PO BID [facility] Last Admin: 01/18/20 09:30 Dose: 1 packet Documented by: - Objective Vital Signs: Vital Signs Temperature 97.9 F 01/18/20 08:45 Pulse Rate 77 01/18/20 08:45 Respiratory Rate 18 01/18/20 08:45 Blood Pressure 125/90 01/18/20 08:45 O2 Sat by Pulse Oximetry (%) 97 01/18/20 09:17 Constitutional: Yes: No Distress, Calm Neck: Yes: Supple Cardiovascular: Yes: Regular Rate and Rhythm Respiratory: Yes: Regular, CTA Bilaterally Gastrointestinal: Yes: Normal Bowel Sounds, Soft Edema: No Labs: CBC, BMP 01/18/20 08:00 - ....Imaging EKG: Report Reviewed (Tele: NSR) Problem List - Problems (1) Atypical chest pain Code(s): R07.89 - OTHER CHEST PAIN (2) Diabetes 1.5, managed as type 2 Code(s): E13.9 - OTHER SPECIFIED DIABETES MELLITUS WITHOUT COMPLICATIONS (3) Hyperlipidemia Code(s): E78.5 - HYPERLIPIDEMIA, UNSPECIFIED Qualifiers: Hyperlipidemia type: pure hypercholesterolemia Qualified Code(s): E78.00 - Pure hypercholesterolemia, unspecified; E78.0 - Pure hypercholesterolemia (4) HTN (hypertension) Code(s): I10 - ESSENTIAL (PRIMARY) HYPERTENSION Qualifiers: Hypertension type: essential hypertension Qualified Code(s): I10 - Essential (primary) hypertension Assessment/Plan EKG: NSR; LAE; LVH; 1st degree AV block; T wave changes Echocardiography study report noted, essentially normal study with normal LVEF ASSESSMENT: 1. Chest pain syndrome, clinical presentation of which is atypical for coronary artery disease and angina pectoris 2. Hypertensive cardiovascular disease, hypertensive urgency related to medical therapy administration noncompliance 3. Diabetes mellitus 4. Hypercholesterolemia 5. Nausea vomiting, clinically resolved 6. Tobacco abuse 7. Substance abuse/marijuana PLAN: 1. Continue Lisinopril 20 qd 2. Continue Coreg 25 bid 3. Continue Lipitor 40 qd 4. Continue Ecotrin 81 qd 5. Patient was strongly counseled smoking cessation and abstinence 6. Patient was strongly counseled substance abuse cessation 7. Advance diet as tolerated Additional cardiovascular evaluation can be performed on an outpatient basis in cluding myocardial perfusion imaging study
[2020-01-18 10:30] LABS: ALBUMIN 3.4 g/dl (3.4-5.0); BILIRUBIN,TOTAL 1.2 mg/dL (0.2-1); BLOOD UREA NITROGEN 16.5 mg/dL (7-18); CALCIUM 9.7 mg/dL (8.5-10.1); CREATININE 1.1 mg/dL (0.55-1.3); TOT PROT 6.5 g/dl (6.4-8.2)
--- NOTE | 2020-01-18 12:53 | PN ---
Progress Note, Physician History of Present Illness: Pt seen and examined at bedside. he is awake and alert. He denies shortness of breath. - Current Medication List Current Medications: Active Medications Acetaminophen (Tylenol -) 650 mg PO Q6H PRN PRN Reason: PAIN LEVEL 4 - 6 Al Hydroxide/Mg Hydroxide (Mylanta Oral Suspension -) 30 ml PO Q6H PRN PRN Reason: DYSPEPSIA Aspirin (Ecotrin -) 81 mg PO DAILY [facility] Last Admin: 01/18/20 09:31 Dose: 81 mg Documented by: Atorvastatin Calcium (Lipitor -) 40 mg PO HS [facility] Last Admin: 01/17/20 21:37 Dose: 40 mg Documented by: Carvedilol (Coreg -) 25 mg PO BID [facility] Last Admin: 01/18/20 09:30 Dose: 25 mg Documented by: Enoxaparin Sodium (Lovenox -) 40 mg SQ DAILY [facility] Last Admin: 01/18/20 09:31 Dose: 40 mg Documented by: Sodium Chloride (Normal Saline -) 1,000 mls @ 150 mls/hr IV ASDIR [facility] Last Admin: 01/17/20 18:27 Dose: 150 mls/hr Documented by: Insulin Aspart (Novolog Vial Sliding Scale -) 1 vial SQ [facility]; Protocol Last Admin: 01/18/20 11:47 Dose: Not Given Documented by: Lisinopril (Prinivil) 20 mg PO DAILY [facility] Last Admin: 01/18/20 09:30 Dose: 20 mg Documented by: Nicotine (Nicoderm Patch -) 14 mg TD DAILY [facility] Last Admin: 01/18/20 09:30 Dose: 14 mg Documented by: Ondansetron HCl (Zofran Injection) 4 mg IVPUSH Q6H PRN PRN Reason: NAUSEA Last Admin: 01/16/20 18:06 Dose: 4 mg Documented by: Potassium Phos/Sodium Phos (Phos-Nak Packet -) 1 packet PO BID [facility] Last Admin: 01/18/20 09:30 Dose: 1 packet Documented by: - Objective Vital Signs: Vital Signs Temperature 97.7 F 01/18/20 12:45 Pulse Rate 64 01/18/20 12:45 Respiratory Rate 20 01/18/20 12:45 Blood Pressure 142/91 01/18/20 12:45 O2 Sat by Pulse Oximetry (%) 98 01/18/20 12:45 Constitutional: Yes: Calm Eyes: Yes: Conjunctiva Clear HENT: Yes: Atraumatic Neck: Yes: Supple Cardiovascular: Yes: S1, S2 Respiratory: Yes: CTA Bilaterally Gastrointestinal: Yes: Soft Genitourinary: Yes: WNL Musculoskeletal: Yes: WNL Edema: No Neurological: Yes: Oriented Psychiatric: Yes: Oriented Labs: CBC, BMP 01/18/20 08:00 01/18/20 08:00 Problem List - Problems (1) Hypercalcemia Code(s): E83.52 - HYPERCALCEMIA (2) Atypical chest pain Code(s): R07.89 - OTHER CHEST PAIN (3) Chest pain Code(s): R07.9 - CHEST PAIN, UNSPECIFIED Qualifiers: Chest pain type: unspecified Qualified Code(s): R07.9 - Chest pain, unspecified (4) Diabetes 1.5, managed as type 2 Code(s): E13.9 - OTHER SPECIFIED DIABETES MELLITUS WITHOUT COMPLICATIONS (5) Hyperlipidemia Code(s): E78.5 - HYPERLIPIDEMIA, UNSPECIFIED Qualifiers: Hyperlipidemia type: pure hypercholesterolemia Qualified Code(s): E78.00 - Pure hypercholesterolemia, unspecified; E78.0 - Pure hypercholesterolemia Assessment/Plan Current Medications Generic Name Dose Route Start Last Admin Trade Name Freq PRN Reason Stop Dose Admin Acetaminophen 650 mg 01/14/20 12:36 Tylenol - PO Q6H PRN PAIN LEVEL 4 - 6 Al Hydroxide/Mg Hydroxide 30 ml 01/14/20 12:44 Mylanta Oral Suspension - PO Q6H PRN DYSPEPSIA Aspirin 81 mg 01/15/20 10:00 01/18/20 09:31 Ecotrin - PO 81 mg DAILY [facility] Administration Atorvastatin Calcium 40 mg 01/15/20 22:00 01/17/20 21:37 Lipitor - PO 40 mg HS [facility] Administration Carvedilol 25 mg 01/17/20 22:00 01/18/20 09:30 Coreg - PO 25 mg BID [facility] Administration Enoxaparin Sodium 40 mg 01/14/20 18:45 01/18/20 09:31 Lovenox - SQ 40 mg DAILY [facility] Administration Sodium Chloride 1,000 mls @ 150 mls/hr 01/17/20 17:50 01/17/20 18:27 Normal Saline - IV 150 mls/hr ASDIR [facility] Administration Insulin Aspart 1 vial 01/14/20 16:30 01/18/20 11:47 Novolog Vial Sliding Scale - SQ Not Given ACHS [facility] Protocol Lisinopril 20 mg 01/16/20 10:36 01/18/20 09:30 Prinivil PO 20 mg DAILY [facility] Administration Nicotine 14 mg 01/15/20 10:15 01/18/20 09:30 Nicoderm Patch - TD 14 mg DAILY [facility] Administration Ondansetron HCl 4 mg 01/14/20 12:36 01/16/20 18:06 Zofran Injection IVPUSH 4 mg Q6H PRN Administration NAUSEA Potassium Phos/Sodium Phos 1 packet 01/17/20 22:00 01/18/20 09:30 Phos-Nak Packet - PO 1 packet BID [facility] Administration Laboratory Tests 01/16/20 01/17/20 20:10 07:15 PTH Intact 81 H DARCIE M-Tristin Pending Impression 1. HTN 2. hypercalcemia 3. dm 4. chest pain 5. hld 6. active smoker 7. marijuana use 8. weight loss - about 70 pounds 9. hyperparathyroidism Plan - spoke to pt about findings and he now says that he did see a doctor on the past for hypercalcemia and he was advised to have his parathyroid gland removed however pt did not want surgery - pth elevated in the setting of hypercalcemia - will need endocrine eval and follow up - follow spep - discussed with medical team
[2020-01-18] MEDS: SODIUM CHLORIDE 1,000 ML IV SCH (13:28)
--- NOTE | 2020-01-18 15:26 | PN ---
Teaching Attending Note Name of Resident: Stephen Guthrie ATTENDING PHYSICIAN STATEMENT I saw and evaluated the patient. I reviewed the resident's note and discussed the case with the resident. I agree with the resident's findings and plan as documented. SUBJECTIVE: patient is comfortable with no acute distress. OBJECTIVE: Vital Signs Temperature 97.7 F 01/18/20 12:45 Pulse Rate 64 01/18/20 12:45 Respiratory Rate 20 01/18/20 12:45 Blood Pressure 142/91 01/18/20 12:45 O2 Sat by Pulse Oximetry (%) 98 01/18/20 12:45 PE: per resident's note CBCD WBC 8.3 K/mm3 (4.0-10.0) 01/18/20 08:00 RBC 4.68 M/mm3 (4.00-5.60) 01/18/20 08:00 Hgb 15.4 GM/dL (11.7-16.9) 01/18/20 08:00 Hct 45.8 % (35.4-49) 01/18/20 08:00 MCV 97.8 fl (80-96) H 01/18/20 08:00 MCHC 33.7 g/dl (32.0-35.9) 01/18/20 08:00 RDW 13.8 % (11.9-15.9) 01/18/20 08:00 Plt Count 231 K/MM3 (134-434) 01/18/20 08:00 MPV 9.6 fl (7.5-11.1) 01/18/20 08:00 CMP Sodium 138 mmol/L (136-145) 01/18/20 08:00 Potassium 4.0 mmol/L (3.5-5.1) 01/18/20 08:00 Chloride 103 mmol/L (98-107) 01/18/20 08:00 Carbon Dioxide 27 mmol/L (21-32) 01/18/20 08:00 Anion Gap 7 MMOL/L (8-16) L 01/18/20 08:00 BUN 16.5 mg/dL (7-18) 01/18/20 08:00 Creatinine 1.1 mg/dL (0.55-1.3) 01/18/20 08:00 Random Glucose 123 mg/dL (74-106) H 01/18/20 08:00 Calcium 9.7 mg/dL (8.5-10.1) 01/18/20 08:00 Total Bilirubin 1.2 mg/dL (0.2-1) H 01/18/20 08:00 AST 20 U/L (15-37) 01/18/20 08:00 ALT 40 U/L (13-61) 01/18/20 08:00 Alkaline Phosphatase 67 U/L (45-117) 01/18/20 08:00 Total Protein 6.5 g/dl (6.4-8.2) 01/18/20 08:00 Albumin 3.4 g/dl (3.4-5.0) 01/18/20 08:00 CARDIAC ENZYMES Creatine Kinase 408 U/L (26-308) H 01/15/20 18:00 Troponin I < 0.02 ng/ml (0.00-0.05) 01/15/20 18:00 Current Medications Generic Name Dose Route Start Last Admin Trade Name Freq PRN Reason Stop Dose Admin Acetaminophen 650 mg 01/14/20 12:36 Tylenol - PO Q6H PRN PAIN LEVEL 4 - 6 Al Hydroxide/Mg Hydroxide 30 ml 01/14/20 12:44 Mylanta Oral Suspension - PO Q6H PRN DYSPEPSIA Aspirin 81 mg 01/15/20 10:00 01/18/20 09:31 Ecotrin - PO 81 mg DAILY [facility] Administration Atorvastatin Calcium 40 mg 01/15/20 22:00 01/17/20 21:37 Lipitor - PO 40 mg HS [facility] Administration Carvedilol 25 mg 01/17/20 22:00 01/18/20 09:30 Coreg - PO 25 mg BID [facility] Administration Enoxaparin Sodium 40 mg 01/14/20 18:45 01/18/20 09:31 Lovenox - SQ 40 mg DAILY [facility] Administration Sodium Chloride 1,000 mls @ 150 mls/hr 01/17/20 17:50 01/18/20 13:28 Normal Saline - IV 150 mls/hr ASDIR [facility] Administration Insulin Aspart 1 vial 01/14/20 16:30 01/18/20 11:47 Novolog Vial Sliding Scale - SQ Not Given ACHS [facility] Protocol Lisinopril 20 mg 01/16/20 10:36 01/18/20 09:30 Prinivil PO 20 mg DAILY [facility] Administration Nicotine 14 mg 01/15/20 10:15 01/18/20 09:30 Nicoderm Patch - TD 14 mg DAILY [facility] Administration Ondansetron HCl 4 mg 01/14/20 12:36 01/16/20 18:06 Zofran Injection IVPUSH 4 mg Q6H PRN Administration NAUSEA Potassium Phos/Sodium Phos 1 packet 01/17/20 22:00 01/18/20 09:30 Phos-Nak Packet - PO 1 packet BID [facility] Administration Home Medications Medication Instructions Recorded Lisinopril [Prinivil] 10 mg PO DAILY 10/05/12 Sitagliptin Phos/Metformin HCl 50 - 1,000 each PO BID 10/05/12 [Janumet 50-1,000 mg Tablet] Atorvastatin Ca [Lipitor] 20 mg PO HS 01/15/20 EKG: Sinus rhythm with 1sr degree AVB, LAE, rate 87, nonspecfic T-wave abnormality. ECHO: with doppler: EJF=65% US of gallbladder: cholelithiais is noted without sonographic evidence of acute cholecystitis. no billiary tract dilatation. Abdomen flat and upright: no acute pathology ASSESSMENT AND PLAN: This patient is a 64yom with PMhx of HTN, HLP, DM , daily marijuana use, non compliance, who presented with CP, N/V . He was admitted for Hypertensive urgency. # HTN urgency: non compliance with his meds, continue lisinopril increased from 10 mg daily to 20 , coreg, continue to monitor # N/v: likely cyclic vomiting sx due to marijuana use , improved no further vomiting. # Uncontrolled T2DM : on SSi with coverage , does not like to take Janumet , will dc the patient on Metformin 1000 po bid , follow with leaf coverer within a week period, also need to follow up for your Parathyroid hormone. # Hypercalcemia :will check PTH level , elevated Vit D 80's the level , continue IVF # HLP: cont statin # Cp resolved . EKG reviewed. # Biliary stones, no cholecystitis . out pt surgical f/u DVT Px: Lovenox sq
[2020-01-18 16:57] VITALS: BP 154/67; PULSE 69; TEMP 97.9
--- NOTE | 2020-01-18 19:13 | DS ---
Physical Exam: SUBJECTIVE: Patient seen and examined. NAD. No overnight events. OBJECTIVE: No overnight evens. Pt was in NAD. ROS is negative. Vital Signs Period Temp Pulse Resp BP Sys/Rose Pulse Ox Last 24 Hr 97.7 F-97.9 F 64-78 18-20 125-154/67-91 97-98 PHYSICAL EXAM GENERAL: The patient is awake, alert, and fully oriented, in no acute distress. HEAD: Normal with no signs of trauma. LUNGS: Breath sounds equal, clear to auscultation bilaterally, no wheezes, no crackles, no accessory muscle use. HEART: Regular rate and rhythm, S1, S2 without murmur, rub or gallop. ABDOMEN: Soft, nontender, nondistended, normoactive bowel sounds, no guarding, no rebound, no hepatosplenomegaly, no masses. EXTREMITIES: 2+ pulses, warm, well-perfused, no edema. NEUROLOGICAL: Normal speech PSYCH: Normal mood, normal affect. SKIN: Warm, dry, normal turgor, no rashes or lesions noted. LABS Laboratory Results - last 24 hr 01/16/20 01/17/20 01/17/20 20:10 07:15 17:54 WBC RBC Hgb Hct MCV MCH MCHC RDW Plt Count MPV Sodium Potassium Chloride Carbon Dioxide Anion Gap BUN Creatinine Est GFR (CKD-EPI)AfAm Est GFR (CKD-EPI)NonAf POC Glucometer 140 Random Glucose Calcium 10.8 H Total Bilirubin AST ALT Alkaline Phosphatase Total Protein Albumin PTH Intact 75 H 81 H PTH Intact Intraop 0 m 01/17/20 01/18/20 01/18/20 21:36 06:22 08:00 WBC 8.3 RBC 4.68 Hgb 15.4 Hct 45.8 MCV 97.8 H MCH 33.0 MCHC 33.7 RDW 13.8 Plt Count 231 MPV 9.6 Sodium Potassium Chloride Carbon Dioxide Anion Gap BUN Creatinine Est GFR (CKD-EPI)AfAm Est GFR (CKD-EPI)NonAf POC Glucometer 156 133 Random Glucose Calcium Total Bilirubin AST ALT Alkaline Phosphatase Total Protein Albumin PTH Intact PTH Intact Intraop 0 m 01/18/20 01/18/20 01/18/20 08:00 11:26 12:37 WBC RBC Hgb Hct MCV MCH MCHC RDW Plt Count MPV Sodium 138 Potassium 4.0 Chloride 103 Carbon Dioxide 27 Anion Gap 7 L BUN 16.5 Creatinine 1.1 Est GFR (CKD-EPI)AfAm 82.37 Est GFR (CKD-EPI)NonAf 71.07 POC Glucometer 170 152 Random Glucose 123 H Calcium 9.7 Total Bilirubin 1.2 H AST 20 ALT 40 Alkaline Phosphatase 67 Total Protein 6.5 Albumin 3.4 PTH Intact PTH Intact Intraop 0 m 01/18/20 16:13 WBC RBC Hgb Hct MCV MCH MCHC RDW Plt Count MPV Sodium Potassium Chloride Carbon Dioxide Anion Gap BUN Creatinine Est GFR (CKD-EPI)AfAm Est GFR (CKD-EPI)NonAf POC Glucometer 140 Random Glucose Calcium Total Bilirubin AST ALT Alkaline Phosphatase Total Protein Albumin PTH Intact PTH Intact Intraop 0 m HOSPITAL COURSE: Date of Admission:01/14/20 Date of Discharge: 01/18/20 64y M hx of htn, hld, dm, presents with chest pain, n/v since approx 1am. Patient states he was watching TV at approximately 1 AM when he developed a pressure-like sensation in his mid chest associated with nausea and vomiting. The patient notes the pain seems to wax and wane lasting for several minutes at a time and then resolving before coming back an hour later. He denies any associated shortness of breath, diaphoresis, dyspnea on exertion, back pain, urinary or bowel chnges, focal numbness/tingling/weakness. He does state that with the pain he does feel very nauseous and vomits. Patient notes that he does drink alcohol frequently. It developed as a L sided chest pain/pressure that has been constant associatd with n/v. denies any sob, abd pain, changes in bms, back pain.Pt received in ED pepcid 20mg, 30m mylanta, 325mg ASA. EKG showed NSR; LAE; LVH; 1st degree AV block; T wave changes. Troponins negative x 2. Echo was WNL. Chest pain resolved and pt was given smoking cessation education. -Blood pressure was stable on Lisinopril 20 mg and Carvedill 6.25 BID. Liptor 40 mg QD was given for hyperlipidemia. Pt will be d/c with carvedilol 25 mg PO BID, and lisinopril increased to 20 mg PO, due to hypertensive urgency. Aspirin 81 mg and atorvastatin 40 mg also given for d/c. Pt was referred to capsule filling machine operator. -HbA1c was 9.0%. Was controlled with ISS. Pt is being discharged with metformin 1000 mg PO BID because pt didn't like taking Janumet. -Biliary stones noted on ultrasound. Hypercalcemia was noted on labs, reaching 11. Vit D was WNL. PTH was elevated at 81, but phosphorus was decreased at 2. This suggested hyperparathyroidsm. Renal Spoke to pt about findings. Pt endorsed that he saw a doctor in the past for hypercalcemia and he was advised to have his parathyroid gland removed however pt did not want surgery. Pt was referred for f/u with cut out press operator. Follow-up with cut out press operator, Dr. Carson regarding elevated Parathyroid and elevated blood hemoglobin level Follow-up with pastry cook apprentice, Dr. Morgan regarding renal function. Follow-up with capsule filling machine operator, Dr. Savage, for further testing and medications. Follow-up with primary care-physician, Dr. Mcfarland, for further health maintenance. Follow-up with surgeon, Dr. Ken for biliary stones in gall bladder. <Stephen Guthrie - Last Filed: 01/18/20 20:59> Physical Exam: Patient was advised to stop taking VItamin D3 and follow up with cut out press operator Minutes to complete discharge: 36 <Dianelys Leonard - Last Filed: 01/19/20 18:00> Discharge Summary Problems reviewed: Yes Current Active Problems Atypical chest pain (Acute) Chest pain (Acute) Hypercalcemia (Acute) - Home Medications Comprehensive Discharge Medication List: Ambulatory Orders Aspirin Coated [Ecotrin -] 81 mg PO DAILY #30 tablet.ec 01/18/20 Atorvastatin Ca [Lipitor] 40 mg PO HS #30 tablet 01/18/20 Carvedilol [Coreg -] 25 mg PO BID #60 tablet 01/18/20 Lisinopril [Prinivil] 20 mg PO DAILY #30 tablet 01/18/20 Metformin HCl [Glucophage] 1,000 mg PO BID 30 Days #60 tablet 01/18/20 <Stephen Guthrie - Last Filed: 01/18/20 20:59> - Home Medications Comprehensive Discharge Medication List: Ambulatory Orders Aspirin Coated [Ecotrin -] 81 mg PO DAILY #30 tablet.ec 01/18/20 Atorvastatin Ca [Lipitor] 40 mg PO HS #30 tablet 01/18/20 Carvedilol [Coreg -] 25 mg PO BID #60 tablet 01/18/20 Lisinopril [Prinivil] 20 mg PO DAILY #30 tablet 01/18/20 Metformin HCl [Glucophage] 1,000 mg PO BID 30 Days #60 tablet 01/18/20 <Dianelys Leonard - Last Filed: 01/19/20 18:00> Reason For Visit: SEPSIS Condition: Stable - Instructions Diet, Activity, Other Instructions: You came to hospital for chest pain.You had an echocardioram of your heart; the results were within normal ranges. Follow up with your doctor or the cut out press operator that we provided you for your elevated calcium level since you have a problem with your parathyroid , please follow up with your primary , pastry cook apprentice and cut out press operator closely , since you might need surgery as you were mentioned in the past by one of your doctors. Your Hemoglobin A1C (Diabetes number) was 9, which means your blood sugar is not controlled well. Your cholesterol levels were also elevated. FOLLOW-UP Please follow-up with your cut out press operator, Dr. Carson regarding elevated Parathyroid and elevated blood hemoglobin level and since your blood sugar not controlled well. You will need repeat blood work. Please follow-up with your pastry cook apprentice, Dr. Morgan regarding your renal function. Please follow-up with your capsule filling machine operator, Dr. Savage, for further testing and medications. Please follow-up with your primary care-physician, Dr. Mcfarland, for further health maintenance. Please follow-up with your surgeon, Dr. Ken for biliary stones in gall bladder. MEDICATIONS: 1. Please increase your to Lisinopril 20 mg daily 2. Please take Coreg 25mg twice a day 3. Lipitor 40 mg daily 4. baby aspirin 81 mg daily 5. Please do not take Calcium or Vitamin D supplements 6. Please do not take Janumet. We are starting you on Metformin 1000 mg BID. Please refrain from smoking. please continue to follow a low sodium/low fat/low sugar/low carb diet. If you experience new, worsening, or concerning symptoms, such as Shortness of breath, nausea, vomiting, chest pain, abdominal pain, etc. please return to the Emergency Department or call 911. Referrals: Hamlet Ken MD [Staff Physician] - James Mcfarland MD [Primary Care Provider] - Tru Savage MD [Staff Physician] - Hang Carson MD [Staff Physician] - Vanessa Morgan MD [Staff Physician] - Disposition: HOME - Discharge Referral Referred to [facility] Med P.C.: No <Stephen Guthrie - Last Filed: 01/18/20 20:59> This patient is new to me today: No Emergency Visit: Yes ED Registration Date: 01/14/20 Care time: The patient presented to the Emergency Department on the above date and was hospitalized for further evaluation of their emergent condition. Critical Care patient: No - Discharge Referral Referred to [facility] Med P.C.: No <Dianelys Leonard - Last Filed: 01/19/20 18:00> ATTENDING PHYSICIAN STATEMENT I saw and evaluated the patient. I reviewed the resident's note and discussed the case with the resident. I agree with the resident's findings and plan as documented. SUBJECTIVE: OBJECTIVE: ASSESSMENT AND PLAN: <Stephen Guthrie - Last Filed: 01/18/20 20:59> ATTENDING PHYSICIAN STATEMENT I saw and evaluated the patient. I reviewed the resident's note and discussed the case with the resident. I agree with the resident's findings and plan as documented. SUBJECTIVE: OBJECTIVE: ASSESSMENT AND PLAN: <Dianelys Leonard - Last Filed: 01/19/20 18:00>
== END 2020-01-18 19:00 | disposition home or self-care (01) | DRG 305 ==
LOC: JER 07:27 → UNDOADMIN 11:15 → JERBED 11:15 → J4W 18:40
PROVIDERS: ADMIT Internal Medicine; ATTEND Internal Medicine
DX: I16.0 Hypertensive urgency (principal); I50.30 Unspecified diastolic (congestive) heart failure; R07.89 Other chest pain; I11.0 Hypertensive heart disease with heart failure; E78.5 Hyperlipidemia, unspecified; D72.829 Elevated white blood cell count, unspecified; F10.10 Alcohol abuse, uncomplicated; I44.0 Atrioventricular block, first degree; E83.52 Hypercalcemia; R11.2 Nausea with vomiting, unspecified; K80.20 Calculus of gallbladder without cholecystitis without obstruction; F17.210 Nicotine dependence, cigarettes, uncomplicated; F12.10 Cannabis abuse, uncomplicated; R63.4 Abnormal weight loss; Z68.21 Body mass index [BMI] 21.0-21.9, adult; F12.188 Cannabis abuse with other cannabis-induced disorder; E21.3 Hyperparathyroidism, unspecified; E11.65 Type 2 diabetes mellitus with hyperglycemia; R11.15 Cyclical vomiting syndrome unrelated to migraine; N40.0 Benign prostatic hyperplasia without lower urinary tract symptoms; Z91.14 Patient's other noncompliance with medication regimen
CPT/HCPCS: 36415; 71045-TC-FY; 74019-TC-FY; 76705-TC; 80048; 80053; 80061; 80307; 81003; 82306; 82310; 82550; 82553; 82570; 82962; 83036; 83690; 83721; 83735; 83880; 83970; 84100; 84155; 84156; 84165; 84484; 85025; 85027; 86769; 86769-59; 93005; 93010; 93306-TC; 99285-25

== ENCOUNTER 2021-04-04 00:51 | Observation (INO) | payer OTHER, BC ==
[2021-04-04 03:52] LABS: BASO % 0.5 % (0-2.0); EOS % 1.1 % (0-4.5); HEMATOCRIT 45.9 % (35.4-49); HEMOGLOBIN 15.6 GM/dL (11.7-16.9); LYMPH % 12.2 % (8-40); MCH 31.9 pg (25.7-33.7); MCHC 33.9 g/dl (32.0-35.9); MEAN CELL VOLUME 94.1 fl (80-96); MEAN PLT VOLUME 8.9 fl (7.5-11.1); MONO % 4.9 % (3.8-10.2); NEUT % 81.3 % (42.8-82.8); PLATELET COUNT 245 10^3/uL (134-434); RBC 4.88 M/mm3 (4.00-5.60); RDW 14.1 % (11.9-15.9); WHITE BLOOD COUNT 9.7 K/mm3 (4.0-10.0)
[2021-04-04 03:54] LABS: CHLORIDE 100 mmol/L (98-107); SODIUM 136 mmol/L (136-145)
[2021-04-04 03:55] LABS: CALCIUM 10.4 mg/dL (8.5-10.1)
[2021-04-04 03:56] LABS: ALBUMIN 4.1 g/dl (3.4-5.0); ANION GAP 7 MMOL/L (8-16); BLOOD UREA NITROGEN 13.9 mg/dL (7-18); CO2 28 mmol/L (21-32); GLUCOSE,RANDOM 247 mg/dL (74-106); LIPASE 500 U/L (73-393); MAGNESIUM 2.2 mg/dL (1.8-2.4)
[2021-04-04 03:59] LABS: PHOSPHOROUS 2.3 mg/dL (2.5-4.9); SGOT/AST 24 U/L (15-37); SGPT/ALT 44 U/L (13-61)
[2021-04-04 04:00] LABS: CREATININE 1.2 mg/dL (0.55-1.3)
[2021-04-04 04:01] LABS: ALK PHOS 96 U/L (45-117); BILIRUBIN,TOTAL 0.8 mg/dL (0.2-1); TOT PROT 8.1 g/dl (6.4-8.2)
[2021-04-04] MEDS ORDERED: SODIUM CHLORIDE 0.9% 500 ML INFUS.BAG IV ONE (07:37)
[2021-04-04] MEDS ORDERED: ONDANSETRON 4 MG/2 ML VIAL IVPUSH ONE (07:40)
[2021-04-04] MEDS ORDERED: ONDANSETRON 4 MG/2 ML VIAL ONE (08:26)
[2021-04-04] MEDS ORDERED: ACETAMINOPHEN 325 MG TABLET (FP) PO PRN (10:37)
[2021-04-04] MEDS ORDERED: INSULIN SLIDING SCALE (NOVOLOG) 1 VIAL SQ SCH (11:00)
[2021-04-04 12:44] LABS: EPI CELLS 7 /uL (0-25.1); HYALINE CASTS 1 /uL (0-3.1); PH,URINE 6.5 (5.0-8.0); URINE APPEARANCE CLEAR; URINE BACTERIA 469 /uL (0-1359); URINE BILIRUBIN NEGATIVE (NEGATIVE); URINE COLOR YELLOW; URINE GLUCOSE (UA) 2+ (NEGATIVE); URINE KETONE 1+ (NEGATIVE); URINE LEUK ESTERASE NEGATIVE (NEGATIVE); URINE NITRITE NEGATIVE (NEGATIVE); URINE PROTEIN 2+ (NEGATIVE); URINE RBC 14 /uL (0-23.9); URINE WBC 9 /uL (0-25.8)
[2021-04-04] MEDS ORDERED: ASPIRIN COATED 81 MG TABLET.EC ONE (12:54)
[2021-04-04] MEDS ORDERED: METOCLOPRAMIDE HCL INJECTION 10 MG/2 ML VIAL ONE (12:54)
[2021-04-04] MEDS ORDERED: CARVEDILOL 12.5 MG TABLET (FP) ONE (12:54)
[2021-04-04] MEDS ORDERED: LISINOPRIL 20 MG TABLET ONE (12:55)
[2021-04-04] MEDS: CARVEDILOL 25 MG TABLET (FP) PO SCH ×2 (13:04→21:40)
[2021-04-04] MEDS: LISINOPRIL 20 MG TABLET PO SCH (13:04)
[2021-04-04] MEDS: METOCLOPRAMIDE HCL INJECTION 10 MG/2 ML VIAL IVPUSH SCH ×2 (13:04→16:54)
[2021-04-04] MEDS: ASPIRIN COATED 81 MG TABLET.EC PO SCH (13:04)
[2021-04-04] MEDS: INSULIN SLIDING SCALE (NOVOLOG) 1 VIAL SQ SCH ×3 (13:50→21:46)
[2021-04-04] MEDS: SODIUM CHLORIDE 1,000 ML IV SCH (15:46)
[2021-04-04] MEDS ORDERED: PNEUMOC 13-VAL CONJ-DIP CRM/PF 0.5 ML DISP.SYRIN IM ONE (18:46)
[2021-04-04] MEDS ORDERED: PNEUMOCOCCAL 23 VACCINE 0.5 ML VIAL IM ONE (19:00)
[2021-04-04] MEDS: ATORVASTATIN CA 40 MG TABLET (FP) PO SCH (21:40)
[2021-04-05] MEDS: SODIUM CHLORIDE 1,000 ML IV SCH ×3 (02:24→23:50)
[2021-04-05] MEDS: METOCLOPRAMIDE HCL INJECTION 10 MG/2 ML VIAL IVPUSH SCH ×4 (06:06→18:45)
[2021-04-05] MEDS: INSULIN SLIDING SCALE (NOVOLOG) 1 VIAL SQ SCH ×4 (06:07→21:25)
[2021-04-05] MEDS: CARVEDILOL 25 MG TABLET (FP) PO SCH ×2 (09:45→21:32)
[2021-04-05] MEDS: ASPIRIN COATED 81 MG TABLET.EC PO SCH (09:45)
[2021-04-05] MEDS: LISINOPRIL 20 MG TABLET PO SCH (09:45)
[2021-04-05] MEDS: ENOXAPARIN NA (PORCINE) 40 MG/0.4 ML DISP.SYRIN SQ SCH (09:46)
[2021-04-05 10:42] LABS: HEMATOCRIT 42.6 % (35.4-49); HEMOGLOBIN 14.6 GM/dL (11.7-16.9); MCH 32.9 pg (25.7-33.7); MCHC 34.4 g/dl (32.0-35.9); MEAN CELL VOLUME 95.6 fl (80-96); MEAN PLT VOLUME 8.9 fl (7.5-11.1); PLATELET COUNT 247 10^3/uL (134-434); RBC 4.46 M/mm3 (4.00-5.60); WHITE BLOOD COUNT 8.5 K/mm3 (4.0-10.0)
[2021-04-05] MEDS ORDERED: POTASSIUM PHOSPHATE 15 MM in SODIUM CHLORIDE 250 ML IVPB ONE (11:00)
[2021-04-05 11:03] VITALS: BMI 22.1
[2021-04-05 11:22] LABS: CALCIUM 9.9 mg/dL (8.5-10.1)
[2021-04-05 11:23] LABS: ALBUMIN 3.5 g/dl (3.4-5.0); BLOOD UREA NITROGEN 17.6 mg/dL (7-18); MAGNESIUM 2.1 mg/dL (1.8-2.4)
[2021-04-05 11:26] LABS: CREATININE 1.1 mg/dL (0.55-1.3)
[2021-04-05 11:29] LABS: BILIRUBIN,TOTAL 1.2 mg/dL (0.2-1); TOT PROT 7.1 g/dl (6.4-8.2)
[2021-04-05 14:44] LABS: LIPASE 387 U/L (73-393)
[2021-04-05 14:47] LABS: CHOLESTEROL 183 mg/dL (50-200); TRIGLYCERIDES 106 mg/dL (0-150)
[2021-04-05 14:48] LABS: LDL CHOLESTEROL (ONLY SJRH) 117 mg/dL (5-100)
[2021-04-05 14:50] LABS: HDL CHOLESTEROL 32 mg/dL (40-60)
[2021-04-05] MEDS ORDERED: PT OWN MED DRAWER 7, Y5N ONE (15:00)
[2021-04-05] MEDS: ATORVASTATIN CA 40 MG TABLET (FP) PO SCH (21:33)
[2021-04-06] MEDS: INSULIN SLIDING SCALE (NOVOLOG) 1 VIAL SQ SCH ×4 (06:18→21:46)
[2021-04-06] MEDS: METOCLOPRAMIDE HCL INJECTION 10 MG/2 ML VIAL IVPUSH SCH ×3 (06:26→17:25)
[2021-04-06] MEDS: ASPIRIN COATED 81 MG TABLET.EC PO SCH (10:04)
[2021-04-06] MEDS: LISINOPRIL 20 MG TABLET PO SCH (10:04)
[2021-04-06] MEDS: CARVEDILOL 25 MG TABLET (FP) PO SCH ×2 (10:04→22:17)
[2021-04-06] MEDS: ENOXAPARIN NA (PORCINE) 40 MG/0.4 ML DISP.SYRIN SQ SCH (10:05)
[2021-04-06 10:06] LABS: BASO % 0.8 % (0-2.0); HEMATOCRIT 39.5 % (35.4-49); HEMOGLOBIN 13.8 GM/dL (11.7-16.9); LYMPH % 29.9 % (8-40); MCH 33.2 pg (25.7-33.7); MCHC 34.9 g/dl (32.0-35.9); MEAN CELL VOLUME 95.4 fl (80-96); MEAN PLT VOLUME 9.1 fl (7.5-11.1); MONO % 9.3 % (3.8-10.2); PLATELET COUNT 215 10^3/uL (134-434); RBC 4.14 M/mm3 (4.00-5.60); RDW 13.6 % (11.9-15.9); WHITE BLOOD COUNT 5.9 K/mm3 (4.0-10.0)
[2021-04-06 10:14] LABS: CALCIUM 9.4 mg/dL (8.5-10.1)
[2021-04-06 10:15] LABS: BLOOD UREA NITROGEN 17.6 mg/dL (7-18); MAGNESIUM 2.2 mg/dL (1.8-2.4)
[2021-04-06 10:18] LABS: CREATININE 1.1 mg/dL (0.55-1.3); PHOSPHOROUS 2.6 mg/dL (2.5-4.9)
[2021-04-06] MEDS: SODIUM CHLORIDE 1,000 ML IV SCH (17:23)
[2021-04-06] MEDS: ATORVASTATIN CA 40 MG TABLET (FP) PO SCH (21:46)
[2021-04-07] MEDS: INSULIN SLIDING SCALE (NOVOLOG) 1 VIAL SQ SCH ×4 (06:13→21:34)
[2021-04-07] MEDS: METOCLOPRAMIDE HCL INJECTION 10 MG/2 ML VIAL IVPUSH SCH ×3 (06:14→17:34)
[2021-04-07] MEDS: LISINOPRIL 20 MG TABLET PO SCH (10:19)
[2021-04-07] MEDS: ASPIRIN COATED 81 MG TABLET.EC PO SCH (10:19)
[2021-04-07] MEDS: ENOXAPARIN NA (PORCINE) 40 MG/0.4 ML DISP.SYRIN SQ SCH ×2 (10:19→10:36)
[2021-04-07] MEDS: CARVEDILOL 25 MG TABLET (FP) PO SCH ×2 (10:19→21:35)
[2021-04-07] MEDS: ATORVASTATIN CA 40 MG TABLET (FP) PO SCH (21:35)
[2021-04-08] MEDS: METOCLOPRAMIDE HCL INJECTION 10 MG/2 ML VIAL IVPUSH SCH ×2 (06:23→12:21)
[2021-04-08] MEDS: INSULIN SLIDING SCALE (NOVOLOG) 1 VIAL SQ SCH ×2 (06:23→12:22)
[2021-04-08] MEDS: ENOXAPARIN NA (PORCINE) 40 MG/0.4 ML DISP.SYRIN SQ SCH (10:31)
[2021-04-08] MEDS: ASPIRIN COATED 81 MG TABLET.EC PO SCH (10:31)
[2021-04-08] MEDS: LISINOPRIL 20 MG TABLET PO SCH (10:31)
[2021-04-08] MEDS: CARVEDILOL 25 MG TABLET (FP) PO SCH (10:31)
[2021-04-08 10:39] VITALS: BP 124/70; PULSE 78; TEMP 98.4
== END 2021-04-08 14:00 | disposition home or self-care (01) ==
LOC: JER 00:51 → INTOOBSV 07:40 → UNDOADMOB 07:40 → JERBED 07:40 → J5S 16:07 → INTOOBSV 04-05 10:45 → JERBED 04-05 10:45 → J5S 04-05 10:45 → OBSVTOIN 04-05 10:45
PROVIDERS: ADMIT Internal Medicine
PROC: 3E023GC Introduction of Other Therapeutic Substance into Muscle, Percutaneous Approach (ICD-10-PCS; principal; 2021-04-05)
PROC: 3E013VG Introduction of Insulin into Subcutaneous Tissue, Percutaneous Approach (ICD-10-PCS; 2021-04-05)
PROC: 3E033GC Introduction of Other Therapeutic Substance into Peripheral Vein, Percutaneous Approach (ICD-10-PCS; 2021-04-05)
PROC: 3E0337Z Introduction of Electrolytic and Water Balance Substance into Peripheral Vein, Percutaneous Approach (ICD-10-PCS; 2021-04-05)
PROC: 3E0234Z Introduction of Serum, Toxoid and Vaccine into Muscle, Percutaneous Approach (ICD-10-PCS; 2021-04-05)
DX: A08.4 Viral intestinal infection, unspecified (principal); I10 Essential (primary) hypertension; F12.10 Cannabis abuse, uncomplicated; E11.9 Type 2 diabetes mellitus without complications; N40.0 Benign prostatic hyperplasia without lower urinary tract symptoms; E78.5 Hyperlipidemia, unspecified; Z29.9 Encounter for prophylactic measures, unspecified; Z23 Encounter for immunization
CPT/HCPCS: 36415; 71046-TC-FY; 74018-TC-FY; 74177-TC; 76705-TC; 80048; 80053; 80061; 80307; 81003; 82010; 82550; 82553; 82962; 83036; 83605; 83690; 83735; 84100; 84484; 85025; 85027; 85730; 87086; 90471; 90732; 93005; 93010; 96361; 96365; 96372; 96375; 99285-25; C9803; G0009; G0378; J0131; U0003; U0005

== ENCOUNTER 2021-07-11 18:31 | Inpatient (IN) | payer OTHER, BC ==
[2021-07-11 18:44] VITALS: BMI 24.0
[2021-07-11 21:12] LABS: BASO % 0.6 % (0-2.0); EOS % 0.4 % (0-4.5); HEMATOCRIT 40.1 % (35.4-49); HEMOGLOBIN 13.5 GM/dL (11.7-16.9); LYMPH % 8.9 % (8-40); MCH 32.2 pg (25.7-33.7); MCHC 33.7 g/dl (32.0-35.9); MEAN CELL VOLUME 95.6 fl (80-96); MEAN PLT VOLUME 7.8 fl (7.5-11.1); MONO % 9.2 % (3.8-10.2); NEUT % 80.9 % (42.8-82.8); PLATELET COUNT 272 10^3/uL (134-434); RDW 13.9 % (11.9-15.9); WHITE BLOOD COUNT 13.7 K/mm3 (4.0-10.0)
[2021-07-11 21:17] LABS: EPI CELLS 3 /uL (0-25.1); HYALINE CASTS 1 /uL (0-3.1); PH,URINE 5.5 (5.0-8.0); URINE APPEARANCE TURBID; URINE BACTERIA >9,000 /uL (0-1359); URINE BILIRUBIN NEGATIVE (NEGATIVE); URINE COLOR YELLOW; URINE GLUCOSE (UA) NEGATIVE (NEGATIVE); URINE KETONE 1+ (NEGATIVE); URINE LEUK ESTERASE 2+ (NEGATIVE); URINE NITRITE NEGATIVE (NEGATIVE); URINE PROTEIN 2+ (NEGATIVE); URINE RBC 77 /uL (0-23.9); URINE WBC 2227 /uL (0-25.8)
[2021-07-11 21:35] LABS: CALCIUM 10.8 mg/dL (8.5-10.1)
[2021-07-11 21:36] LABS: ALBUMIN 3.3 g/dl (3.4-5.0); BLOOD UREA NITROGEN 19.3 mg/dL (7-18)
[2021-07-11 21:39] LABS: CREATININE 1.2 mg/dL (0.55-1.3)
[2021-07-11 21:41] LABS: BILIRUBIN,TOTAL 0.7 mg/dL (0.2-1); TOT PROT 7.4 g/dl (6.4-8.2)
[2021-07-11] MEDS ORDERED: SODIUM CHLORIDE 0.9% 1000 ML INFUS.BAG IV ONE (21:46)
[2021-07-11] MEDS ORDERED: ACETAMINOPHEN 1000 MG/100 ML VIAL IVPB ONE (21:46)
[2021-07-11] MEDS ORDERED: morphine CARPU-JECT 2 MG/1 ML DISP.SYRIN IVPUSH ONE (21:46)
[2021-07-11] MEDS ORDERED: ACETAMINOPHEN INJECTION 100 ML IVPB ONE (22:01)
[2021-07-12] MEDS ORDERED: CEFTRIAXONE 1 GM in DEXTROSE 5%-WATER - 100 ML IVPB ONE (00:09)
[2021-07-12] MEDS ORDERED: CEFTRIAXONE 1 GM/50 ML BAG ONE (00:25)
[2021-07-12] MEDS ORDERED: CINACALCET HCL 30 MG TAB (FP) PO ONE (04:56)
[2021-07-12] MEDS: INSULIN SLIDING SCALE (NOVOLOG) 1 VIAL SQ SCH ×4 (06:01→22:43)
[2021-07-12] MEDS ORDERED: PATIENT'S OWN MEDICATION (NON-FORMULARY) (Losartan/Hydrochlorothiazide [Losartan-Hctz 100- PO SCH (10:00)
[2021-07-12] MEDS: HYDROCHLOROTHIAZIDE 12.5 MG CAPSULE (FP) PO SCH (11:07)
[2021-07-12] MEDS: LOSARTAN POTASSIUM 50 MG TABLET PO SCH (11:07)
[2021-07-12] MEDS: ENOXAPARIN NA (PORCINE) 40 MG/0.4 ML DISP.SYRIN SQ SCH (11:11)
[2021-07-12] MEDS ORDERED: FLU VACC QS2021-22(6MOS UP)/PF 60 MCG/0.5 ML SYRINGE IM ONE (11:21)
[2021-07-12 12:12] LABS: BASO % 0.5 % (0-2.0); EOS % 0.7 % (0-4.5); HEMATOCRIT 39.4 % (35.4-49); HEMOGLOBIN 13.2 GM/dL (11.7-16.9); LYMPH % 7.5 % (8-40); MCH 32.3 pg (25.7-33.7); MCHC 33.5 g/dl (32.0-35.9); MEAN CELL VOLUME 96.4 fl (80-96); NEUT % 82.3 % (42.8-82.8); PLATELET COUNT 310 10^3/uL (134-434); RBC 4.09 M/mm3 (4.00-5.60); WHITE BLOOD COUNT 15.2 K/mm3 (4.0-10.0)
[2021-07-12 12:36] LABS: ALBUMIN 3.1 g/dl (3.4-5.0); CALCIUM 10.6 mg/dL (8.5-10.1)
[2021-07-12 12:37] LABS: BLOOD UREA NITROGEN 19.2 mg/dL (7-18)
[2021-07-12 12:39] LABS: CREATININE 1.1 mg/dL (0.55-1.3)
[2021-07-12 12:41] LABS: BILIRUBIN,TOTAL 0.9 mg/dL (0.2-1); TOT PROT 7.2 g/dl (6.4-8.2)
[2021-07-12] MEDS ORDERED: CINACALCET HCL 30 MG TAB (FP) PO SCH (12:45)
[2021-07-12] MEDS: ASPIRIN COATED 81 MG TABLET.EC PO SCH (14:57)
[2021-07-12] MEDS: CARVEDILOL 25 MG TABLET (FP) PO SCH ×2 (15:00→22:38)
[2021-07-12] MEDS: IBUPROFEN 600 MG TABLET (FP) PO PRN (16:07)
[2021-07-12] MEDS ORDERED: CEFTRIAXONE 1 GM in DEXTROSE 5%-WATER - 50 ML IVPB SCH (18:00)
[2021-07-12] MEDS ORDERED: ATORVASTATIN CA 20 MG TABLET (FP) PO SCH (22:00)
[2021-07-13] MEDS: INSULIN SLIDING SCALE (NOVOLOG) 1 VIAL SQ SCH ×2 (06:29→11:59)
[2021-07-13 09:25] LABS: HEMATOCRIT 42.1 % (35.4-49); HEMOGLOBIN 14.2 GM/dL (11.7-16.9); MCH 32.6 pg (25.7-33.7); MCHC 33.7 g/dl (32.0-35.9); MEAN CELL VOLUME 96.7 fl (80-96); MEAN PLT VOLUME 7.8 fl (7.5-11.1); PLATELET COUNT 381 10^3/uL (134-434); RBC 4.36 M/mm3 (4.00-5.60); RDW 13.8 % (11.9-15.9); WHITE BLOOD COUNT 11.5 K/mm3 (4.0-10.0)
[2021-07-13] MEDS: ENOXAPARIN NA (PORCINE) 40 MG/0.4 ML DISP.SYRIN SQ SCH (09:41)
[2021-07-13] MEDS: CARVEDILOL 25 MG TABLET (FP) PO SCH (09:42)
[2021-07-13] MEDS: LOSARTAN POTASSIUM 50 MG TABLET PO SCH (09:43)
[2021-07-13] MEDS: HYDROCHLOROTHIAZIDE 12.5 MG CAPSULE (FP) PO SCH (09:43)
[2021-07-13] MEDS: ASPIRIN COATED 81 MG TABLET.EC PO SCH (09:43)
[2021-07-13 09:53] LABS: CALCIUM 11.3 mg/dL (8.5-10.1); MAGNESIUM 2.4 mg/dL (1.8-2.4)
[2021-07-13 09:54] LABS: BLOOD UREA NITROGEN 22.2 mg/dL (7-18)
[2021-07-13 09:57] LABS: CREATININE 1.2 mg/dL (0.55-1.3); PHOSPHOROUS 3.2 mg/dL (2.5-4.9)
[2021-07-13] MEDS ORDERED: CINACALCET HCL 30 MG TAB (FP) PO SCH (10:00)
[2021-07-13] MEDS: IBUPROFEN 600 MG TABLET (FP) PO PRN (12:42)
[2021-07-13 15:25] VITALS: BP 126/64; PULSE 86; TEMP 98.6
== END 2021-07-13 15:24 | disposition home or self-care (01) | DRG 699 ==
LOC: JER 18:31 → JERBED 07-12 00:19 → J5S 07-12 04:32
PROVIDERS: ADMIT Hospitalist; ATTEND Internal Medicine
DX: N99.89 Other postprocedural complications and disorders of genitourinary system (principal); N39.0 Urinary tract infection, site not specified; I11.0 Hypertensive heart disease with heart failure; I50.9 Heart failure, unspecified; E11.9 Type 2 diabetes mellitus without complications; E78.5 Hyperlipidemia, unspecified; N45.1 Epididymitis; Y83.9 Surgical procedure, unspecified as the cause of abnormal reaction of the patient, or of later complication, without mention of misadventure at the time of the procedure; N43.3 Hydrocele, unspecified; N50.82 Scrotal pain; N50.819 Testicular pain, unspecified; R30.0 Dysuria; R63.0 Anorexia; F12.90 Cannabis use, unspecified, uncomplicated; E83.52 Hypercalcemia; N45.2 Orchitis
CPT/HCPCS: 36415; 74177-TC; 76870-TC; 80048; 80053; 81003; 82962; 83605; 83735; 84100; 85025; 85027; 87086; 87186; 93005; 93010; 99285-25; C9803; J0131; U0003; U0005

== ENCOUNTER 2024-01-11 22:45 | Observation (INO) | payer BC, OTHER ==
[2024-01-11 23:24] LABS: INR 0.95 (0.83-1.09); PROTHROMBIN TIME (PATIENT) 10.7 SEC (9.7-13.0)
[2024-01-11 23:27] LABS: ACTIVATED PTT 29.5 SECONDS (25.2-36.5)
[2024-01-11 23:36] LABS: POTASSIUM 3.8 mmol/L (3.5-5.1)
[2024-01-11 23:38] LABS: ALBUMIN 3.4 g/dl (3.4-5.0); CALCIUM 8.3 mg/dL (8.5-10.1)
[2024-01-11 23:39] LABS: BLOOD UREA NITROGEN 14.8 mg/dL (7-18)
[2024-01-11 23:41] LABS: CREATININE 1.5 mg/dL (0.55-1.3)
[2024-01-11 23:43] LABS: TOT PROT 6.7 g/dl (6.4-8.2)
[2024-01-11 23:44] LABS: BILIRUBIN,TOTAL 0.4 mg/dL (0.2-1)
[2024-01-11 23:49] LABS: BASO % 0.8 % (0-2.0); EOS % 5.5 % (0-4.5); HEMATOCRIT 37.9 % (35.4-49); LYMPH % 36.1 % (8-40); MCH 32.6 pg (25.7-33.7); MCHC 34.3 g/dl (32.0-35.9); MEAN PLT VOLUME 8.3 fl (7.5-11.1); NEUT % 49.6 % (42.8-82.8); PLATELET COUNT 232 10^3/uL (134-434); RBC 3.99 M/mm3 (4.00-5.60); RDW 13.7 % (11.9-15.9)
[2024-01-11 23:57] LABS: EPI CELLS 3 /uL (0-25.1); HYALINE CASTS 1 /uL (0-3.1); PH,URINE 5.5 (5.0-8.0); URINE APPEARANCE CLEAR; URINE BACTERIA 0 /uL (0-1359); URINE BILIRUBIN NEGATIVE (NEGATIVE); URINE COLOR YELLOW; URINE GLUCOSE (UA) TRACE (NEGATIVE); URINE KETONE NEGATIVE (NEGATIVE); URINE LEUK ESTERASE NEGATIVE (NEGATIVE); URINE NITRITE NEGATIVE (NEGATIVE); URINE PROTEIN 1+ (NEGATIVE); URINE RBC 7 /uL (0-23.9); URINE UROBILINOGEN 0.2 mg/dL (0.2-1.0); URINE WBC 6 /uL (0-25.8)
[2024-01-12 00:01] LABS: METHADONE, UR NEGATIVE (NEGATIVE); PHENCYCLIDINE,URINE NEGATIVE (NEGATIVE); URINE AMPHETAMINES NEGATIVE (NEGATIVE); URINE BENZODIAZEPINES NEGATIVE (NEGATIVE)
[2024-01-12 00:02] LABS: COCAINE, UR NEGATIVE (NEGATIVE); URINE BARBITURATES NEGATIVE (NEGATIVE)
[2024-01-12 00:17] LABS: OPIATES, URI NEGATIVE (NEGATIVE)
[2024-01-12] MEDS ORDERED: ASPIRIN 81 MG CHEWABLE TABLETS ONE (01:00)
[2024-01-12] MEDS: SODIUM CHLORIDE 0.9% 500 ML INFUS.BAG IV ONE (01:03)
[2024-01-12] MEDS: ASPIRIN 81 MG CHEWABLE TABLETS PO ONE (01:03)
[2024-01-12] MEDS ORDERED: INSULIN (NOVOLOG) ASPART 100 UNITS/ML 10ML VIAL SQ SCH (07:00)
[2024-01-12 07:14] LABS: HEMATOCRIT 39.5 % (35.4-49); HEMOGLOBIN 13.3 GM/dL (11.7-16.9); MCH 32.1 pg (25.7-33.7); MCHC 33.8 g/dl (32.0-35.9); MEAN PLT VOLUME 8.2 fl (7.5-11.1); PLATELET COUNT 229 10^3/uL (134-434); RBC 4.16 M/mm3 (4.00-5.60); WHITE BLOOD COUNT 6.2 K/mm3 (4.0-10.0)
[2024-01-12 07:36] LABS: POTASSIUM 3.8 mmol/L (3.5-5.1)
[2024-01-12 07:38] LABS: CALCIUM 8.2 mg/dL (8.5-10.1)
[2024-01-12 07:40] LABS: ALBUMIN 3.4 g/dl (3.4-5.0); BLOOD UREA NITROGEN 10.9 mg/dL (7-18)
[2024-01-12 07:41] LABS: CREATININE 1.1 mg/dL (0.55-1.3)
[2024-01-12 07:43] LABS: TOT PROT 6.6 g/dl (6.4-8.2)
[2024-01-12 07:45] LABS: BILIRUBIN,TOTAL 0.3 mg/dL (0.2-1)
[2024-01-12] MEDS: INSULIN (LEVEMIR) 100 UNITS/ML UNITS SQ SCH (08:55)
[2024-01-12] MEDS ORDERED: INSULIN (LEVEMIR) 100 UNITS/ML UNITS SQ ONE (09:05)
[2024-01-12] MEDS: INSULIN (NOVOLOG) ASPART 100 UNITS/ML 10ML VIAL SQ SCH (09:23)
[2024-01-12] MEDS ORDERED: ALBUTEROL SO4 HFA INHALER IH PRN (10:29)
[2024-01-12] MEDS: ASPIRIN 81 MG CHEWABLE TABLETS PO SCH (10:35)
[2024-01-12] MEDS: ENOXAPARIN NA (PORCINE) 40 MG/0.4 ML DISP.SYRIN SQ SCH (10:35)
[2024-01-12] MEDS ORDERED: INSULIN ASPART SLIDING SCALE (NOVOLOG) 1 VIAL SQ ONE (12:15)
[2024-01-12] MEDS: INSULIN ASPART SLIDING SCALE (NOVOLOG) 1 VIAL SQ SCH (12:20)
[2024-01-12] MEDS ORDERED: ATORVASTATIN CA 80 MG TABLET (FP) ONE (22:57)
[2024-01-12] MEDS: ATORVASTATIN CA 80 MG TABLET (FP) PO SCH (23:22)
[2024-01-13 07:49] LABS: BASO % 0.7 % (0-2.0); EOS % 4.2 % (0-4.5); HEMOGLOBIN 14.3 GM/dL (11.7-16.9); LYMPH % 27.5 % (8-40); MCH 31.4 pg (25.7-33.7); MCHC 33.1 g/dl (32.0-35.9); MEAN CELL VOLUME 94.9 fl (80-96); MEAN PLT VOLUME 8.4 fl (7.5-11.1); MONO % 7.6 % (3.8-10.2); PLATELET COUNT 261 10^3/uL (134-434); RBC 4.53 M/mm3 (4.00-5.60); RDW 13.9 % (11.9-15.9); WHITE BLOOD COUNT 7.4 K/mm3 (4.0-10.0)
[2024-01-13 08:06] LABS: POTASSIUM 3.6 mmol/L (3.5-5.1)
[2024-01-13 08:16] LABS: ALBUMIN 3.6 g/dl (3.4-5.0); BLOOD UREA NITROGEN 9.7 mg/dL (7-18)
[2024-01-13 08:19] LABS: CREATININE 1.1 mg/dL (0.55-1.3)
[2024-01-13 08:20] LABS: BILIRUBIN,TOTAL 0.8 mg/dL (0.2-1)
[2024-01-13 08:21] LABS: TOT PROT 6.7 g/dl (6.4-8.2)
[2024-01-13] MEDS ORDERED: INSULIN (LEVEMIR) 100 UNITS/ML UNITS SQ ONE (09:35)
[2024-01-13] MEDS: CLOPIDOGREL BISULFATE 75 MG TABLET (FP) PO SCH (09:44)
[2024-01-13] MEDS ORDERED: CLOPIDOGREL BISULFATE 75 MG TABLET (FP) PO SCH ×2 (10:00)
[2024-01-13] MEDS ORDERED: INSULIN ASPART SLIDING SCALE (NOVOLOG) 1 VIAL SQ ONE (13:38)
[2024-01-13] MEDS ORDERED: NICOTINE 14 MG/24 HOURS TOPICAL PATCH TD ONE (17:05)
[2024-01-13] MEDS ORDERED: LISINOPRIL 5 MG TABLET ONE (17:06)
[2024-01-13] MEDS: LISINOPRIL 5 MG TABLET PO SCH (18:14)
[2024-01-13] MEDS: NICOTINE 14 MG/24 HOURS TOPICAL PATCH TD SCH (18:14)
[2024-01-13 20:50] VITALS: BMI 24.0
[2024-01-13] MEDS: CARVEDILOL 6.25 MG TABLET (FP) PO SCH (21:05)
[2024-01-14 06:42] LABS: BASO % 0.9 % (0-2.0); EOS % 3.8 % (0-4.5); HEMATOCRIT 42.4 % (35.4-49); HEMOGLOBIN 14.4 GM/dL (11.7-16.9); LYMPH % 27.4 % (8-40); MCH 32.4 pg (25.7-33.7); MEAN CELL VOLUME 95.4 fl (80-96); MONO % 8.2 % (3.8-10.2); NEUT % 59.7 % (42.8-82.8); PLATELET COUNT 265 10^3/uL (134-434); RBC 4.45 M/mm3 (4.00-5.60); RDW 13.7 % (11.9-15.9); WHITE BLOOD COUNT 6.7 K/mm3 (4.0-10.0)
[2024-01-14 07:08] LABS: CALCIUM 8.8 mg/dL (8.5-10.1)
[2024-01-14 07:09] LABS: BLOOD UREA NITROGEN 14.1 mg/dL (7-18)
[2024-01-14 07:12] LABS: CREATININE 1.2 mg/dL (0.55-1.3)
[2024-01-14] MEDS: LISINOPRIL 10 MG TABLET PO SCH (10:45)
[2024-01-14] MEDS: CARVEDILOL 12.5 MG TABLET (FP) PO SCH (10:45)
[2024-01-14 11:44] VITALS: RESP 16
[2024-01-14] MEDS ORDERED: CARVEDILOL 25 MG TABLET (FP) PO SCH (12:16)
[2024-01-14 14:17] VITALS: BP 147/95; PULSE 79; TEMP 98.6
== END 2024-01-14 18:14 | disposition home or self-care (01) ==
LOC: JER 22:45 → JERBED 01-12 00:27 → J4S 01-13 20:06
PROVIDERS: ADMIT Internal Medicine; ATTEND Nurse Practitioner
PROC: 3E023GC Introduction of Other Therapeutic Substance into Muscle, Percutaneous Approach (ICD-10-PCS; principal; 2024-01-12)
PROC: 3E013VG Introduction of Insulin into Subcutaneous Tissue, Percutaneous Approach (ICD-10-PCS; 2024-01-12)
PROC: 3E0337Z Introduction of Electrolytic and Water Balance Substance into Peripheral Vein, Percutaneous Approach (ICD-10-PCS; 2024-01-12)
DX: I63.9 Cerebral infarction, unspecified (principal); E11.9 Type 2 diabetes mellitus without complications; I50.9 Heart failure, unspecified; I16.0 Hypertensive urgency; E78.5 Hyperlipidemia, unspecified; N40.0 Benign prostatic hyperplasia without lower urinary tract symptoms; F12.988 Cannabis use, unspecified with other cannabis-induced disorder; I44.30 Unspecified atrioventricular block; Z79.4 Long term (current) use of insulin; F17.200 Nicotine dependence, unspecified, uncomplicated; Z71.6 Tobacco abuse counseling
CPT/HCPCS: 36415; 70450-TC; 70551-TC; 80048; 80053; 80061; 80307; 81003; 82550; 82553; 82962; 83036; 83735; 84100; 84484; 85025; 85027; 85610; 85730; 86850; 86900; 86901; 87086; 93005; 93010; 93306-TC; 93880-TC; 96372; 97116-GP; 97162-GP; 99285-25; G0378

== ENCOUNTER 2024-07-19 22:31 | Inpatient (IN) | payer OTHER ==
[2024-07-19] MEDS ORDERED: ONDANSETRON 4 MG/2 ML VIAL ONE (23:11)
[2024-07-19] MEDS ORDERED: LABETALOL HCL 20 MG/4 ML VIAL ONE (23:11)
[2024-07-19] MEDS: ONDANSETRON 4 MG/2 ML VIAL IVPUSH ONE (23:23)
[2024-07-19] MEDS: LABETALOL HCL 20 MG/4 ML VIAL IVPUSH ONE (23:23)
[2024-07-19 23:31] LABS: BASO % 0.6 % (0-2.0); EOS % 3.8 % (0-4.5); HEMATOCRIT 43.6 % (35.4-49); HEMOGLOBIN 14.7 GM/dL (11.7-16.9); LYMPH % 21.4 % (8-40); MCH 32.2 pg (25.7-33.7); MCHC 33.6 g/dl (32.0-35.9); MEAN CELL VOLUME 95.9 fl (80-96); MEAN PLT VOLUME 7.8 fl (7.5-11.1); MONO % 9.1 % (3.8-10.2); NEUT % 65.1 % (42.8-82.8); PLATELET COUNT 242 10^3/uL (134-434); RBC 4.55 M/mm3 (4.00-5.60); RDW 14.7 % (11.9-15.9); WHITE BLOOD COUNT 6.8 K/mm3 (4.0-10.0)
[2024-07-19 23:52] LABS: ALBUMIN 3.8 g/dl (3.4-5.0); BLOOD UREA NITROGEN 10.3 mg/dL (7-18); CALCIUM 9.6 mg/dL (8.5-10.1); MAGNESIUM 2.3 mg/dL (1.8-2.4)
[2024-07-19 23:54] LABS: CREATININE 1.1 mg/dL (0.55-1.3)
[2024-07-19 23:55] LABS: PHOSPHOROUS 4.2 mg/dL (2.5-4.9)
[2024-07-19 23:57] LABS: BILIRUBIN,TOTAL 0.6 mg/dL (0.2-1); TOT PROT 7.4 g/dl (6.4-8.2)
[2024-07-20] MEDS: LABETALOL HCL 20 MG/4 ML VIAL IVPUSH ONE ×3 (00:38→15:37)
[2024-07-20] MEDS ORDERED: TRIMETHOBENZAMIDE HCL 200MG/2ML INJ IM PRN (02:42)
[2024-07-20] MEDS: morphine CARPU-JECT 2 MG/1 ML DISP.SYRIN IVPUSH SCH (03:13)
[2024-07-20] MEDS ORDERED: LABETALOL HCL 20 MG/4 ML VIAL ONE (04:07)
[2024-07-20] MEDS: LACTATED RINGERS SOLUTION 1,000 ML/1,000 ML INFUS.BAG IV SCH (04:15)
[2024-07-20 04:28] LABS: EPI CELLS 1 /uL (0-25.1); HYALINE CASTS 0 /uL (0-3.1); PH,URINE 7.5 (5.0-8.0); URINE APPEARANCE CLEAR; URINE BACTERIA 8 /uL (0-1359); URINE BILIRUBIN NEGATIVE (NEGATIVE); URINE COLOR YELLOW; URINE GLUCOSE (UA) 3+ (NEGATIVE); URINE KETONE NEGATIVE (NEGATIVE); URINE LEUK ESTERASE NEGATIVE (NEGATIVE); URINE NITRITE NEGATIVE (NEGATIVE); URINE PROTEIN 1+ (NEGATIVE); URINE RBC 29 /uL (0-23.9); URINE UROBILINOGEN 0.2 mg/dL (0.2-1.0); URINE WBC 3 /uL (0-25.8)
[2024-07-20] MEDS ORDERED: LOSARTAN POTASSIUM 50 MG TABLET ONE (04:31)
[2024-07-20] MEDS: LOSARTAN POTASSIUM 50 MG TABLET PO ONE (04:43)
[2024-07-20] MEDS: INSULIN ASPART SLIDING SCALE (NOVOLOG) 1 VIAL SQ SCH (06:41)
[2024-07-20 07:50] LABS: POTASSIUM 3.7 mmol/L (3.5-5.1)
[2024-07-20 07:55] LABS: ALBUMIN 3.6 g/dl (3.4-5.0)
[2024-07-20 07:57] LABS: CALCIUM 9.4 mg/dL (8.5-10.1); MAGNESIUM 1.9 mg/dL (1.8-2.4)
[2024-07-20 07:58] LABS: CREATININE 1.1 mg/dL (0.55-1.3)
[2024-07-20 07:59] LABS: TOT PROT 6.9 g/dl (6.4-8.2)
[2024-07-20 08:01] LABS: PHOSPHOROUS 3.7 mg/dL (2.5-4.9)
[2024-07-20 08:02] LABS: BILIRUBIN,TOTAL 0.7 mg/dL (0.2-1)
[2024-07-20 08:10] LABS: HEMATOCRIT 41.6 % (35.4-49); HEMOGLOBIN 14.2 GM/dL (11.7-16.9); MCH 32.5 pg (25.7-33.7); MCHC 34.1 g/dl (32.0-35.9); PLATELET COUNT 242 10^3/uL (134-434); RBC 4.37 M/mm3 (4.00-5.60); RDW 14.6 % (11.9-15.9); WHITE BLOOD COUNT 7.2 K/mm3 (4.0-10.0)
[2024-07-20] MEDS: ASPIRIN 81 MG CHEWABLE TABLETS PO SCH (09:42)
[2024-07-20] MEDS: CLOPIDOGREL BISULFATE 75 MG TABLET (FP) PO SCH (09:42)
[2024-07-20] MEDS: ENOXAPARIN NA (PORCINE) 40 MG/0.4 ML DISP.SYRIN SQ SCH (09:42)
[2024-07-20] MEDS: SODIUM CHLORIDE 0.45% 1,000 ML IV SCH (09:42)
[2024-07-20] MEDS: NICOTINE 14 MG/24 HOURS TOPICAL PATCH TD SCH (09:43)
[2024-07-20] MEDS: LOSARTAN POTASSIUM 50 MG TABLET PO SCH (09:43)
[2024-07-20] MEDS: CARVEDILOL 25 MG TABLET (FP) PO SCH (11:56)
[2024-07-20] MEDS: METOCLOPRAMIDE HCL INJECTION 10 MG/2 ML VIAL IVPUSH SCH (11:56)
[2024-07-20] MEDS: NIFEdipine E.R. 30 MG TABLET PO SCH (15:37)
[2024-07-20] MEDS: ACETAMINOPHEN 1000 MG/100 ML BAG IVPB ONE (18:31)
[2024-07-20] MEDS: ACETAMINOPHEN 1000 MG/100 ML BAG IVPB PRN (18:42)
[2024-07-20] MEDS: NICARDIPINE 25 MG in DEXTROSE 5%-WATER - 240 ML IVPB SCH (19:26)
[2024-07-20] MEDS: POLYETHYLENE GLYCOL (HEALTHYLAX) 3350 17 GM PACKET PO SCH (21:02)
[2024-07-20] MEDS: CHLORHEXIDINE GLUCONATE 4% CLEANSER FOR DECOLONIZATION TP SCH (21:02)
[2024-07-20] MEDS: MUPIROCIN 2% TOPICAL OINTMENT FOR DECOLONIZATION NS SCH (21:02)
[2024-07-20] MEDS: INSULIN (LEVEMIR) 100 UNITS/ML UNITS SQ SCH (21:02)
[2024-07-20] MEDS: ATORVASTATIN CA 80 MG TABLET (FP) PO SCH (21:02)
[2024-07-20] MEDS ORDERED: ATORVASTATIN CA 80 MG TABLET (FP) PO SCH (22:00)
[2024-07-20] MEDS ORDERED: POLYETHYLENE GLYCOL (HEALTHYLAX) 3350 17 GM PACKET PO SCH (22:00)
[2024-07-20] MEDS ORDERED: INSULIN (LEVEMIR) 100 UNITS/ML UNITS SQ SCH (22:00)
[2024-07-21] MEDS: METOCLOPRAMIDE HCL INJECTION 10 MG/2 ML VIAL IVPUSH SCH (01:14)
[2024-07-21] MEDS: INSULIN ASPART SLIDING SCALE (NOVOLOG) 1 VIAL SQ SCH (06:29)
[2024-07-21 06:56] LABS: POTASSIUM 3.7 mmol/L (3.5-5.1)
[2024-07-21 07:00] LABS: ALBUMIN 3.6 g/dl (3.4-5.0); BLOOD UREA NITROGEN 15.2 mg/dL (7-18); CALCIUM 9.2 mg/dL (8.5-10.1)
[2024-07-21 07:02] LABS: CREATININE 1.1 mg/dL (0.55-1.3)
[2024-07-21 07:03] LABS: PHOSPHOROUS 4.2 mg/dL (2.5-4.9)
[2024-07-21 07:04] LABS: BILIRUBIN,DIRECT 0.2 mg/dL (0.0-0.2); TOT PROT 6.9 g/dl (6.4-8.2)
[2024-07-21] MEDS: NICOTINE 14 MG/24 HOURS TOPICAL PATCH TD SCH (11:27)
[2024-07-21] MEDS: LOSARTAN POTASSIUM 50 MG TABLET PO SCH (11:28)
[2024-07-21] MEDS: TRIMETHOBENZAMIDE HCL 200MG/2ML INJ IM PRN (18:57)
[2024-07-22 08:02] LABS: HEMATOCRIT 44.3 % (35.4-49); HEMOGLOBIN 15.2 GM/dL (11.7-16.9); MCH 32.6 pg (25.7-33.7); MCHC 34.3 g/dl (32.0-35.9); MEAN CELL VOLUME 95.2 fl (80-96); PLATELET COUNT 268 10^3/uL (134-434); RBC 4.66 M/mm3 (4.00-5.60); RDW 14.6 % (11.9-15.9); WHITE BLOOD COUNT 7.9 K/mm3 (4.0-10.0)
[2024-07-22 08:04] LABS: POTASSIUM 3.9 mmol/L (3.5-5.1)
[2024-07-22 08:09] LABS: ALBUMIN 3.5 g/dl (3.4-5.0); BLOOD UREA NITROGEN 18.1 mg/dL (7-18)
[2024-07-22 08:12] LABS: CREATININE 1.1 mg/dL (0.55-1.3)
[2024-07-22 08:13] LABS: BILIRUBIN,TOTAL 1.4 mg/dL (0.2-1); PHOSPHOROUS 3.4 mg/dL (2.5-4.9)
[2024-07-22 08:14] LABS: TOT PROT 6.8 g/dl (6.4-8.2)
[2024-07-22] MEDS: CARVEDILOL 25 MG TABLET (FP) PO SCH ×2 (10:14→21:42)
[2024-07-22 14:56] VITALS: BMI 22.0
[2024-07-22] MEDS: INSULIN (LEVEMIR) 100 UNITS/ML UNITS SQ SCH (21:42)
[2024-07-22] MEDS: ATORVASTATIN CA 80 MG TABLET (FP) PO SCH (21:42)
[2024-07-22] MEDS: POLYETHYLENE GLYCOL (HEALTHYLAX) 3350 17 GM PACKET PO SCH (21:44)
[2024-07-22] MEDS ORDERED: MUPIROCIN 2% TOPICAL OINTMENT FOR DECOLONIZATION NS SCH (22:00)
[2024-07-22] MEDS ORDERED: CHLORHEXIDINE GLUCONATE 4% CLEANSER FOR DECOLONIZATION TP SCH (22:00)
[2024-07-23] MEDS: INSULIN ASPART SLIDING SCALE (NOVOLOG) 1 VIAL SQ SCH (06:43)
[2024-07-23] MEDS: TRIMETHOBENZAMIDE HCL 200MG/2ML INJ IM PRN (07:07)
[2024-07-23 08:29] LABS: POTASSIUM 4.2 mmol/L (3.5-5.1)
[2024-07-23 09:00] LABS: ALBUMIN 3.7 g/dl (3.4-5.0); BLOOD UREA NITROGEN 22.3 mg/dL (7-18); CALCIUM 9.5 mg/dL (8.5-10.1)
[2024-07-23 09:03] LABS: CREATININE 1.2 mg/dL (0.55-1.3)
[2024-07-23 09:05] LABS: BILIRUBIN,TOTAL 1.4 mg/dL (0.2-1); TOT PROT 7.3 g/dl (6.4-8.2)
[2024-07-23] MEDS ORDERED: LOSARTAN POTASSIUM 50 MG TABLET PO SCH (10:00)
[2024-07-23] MEDS: NICOTINE 14 MG/24 HOURS TOPICAL PATCH TD SCH (10:03)
[2024-07-23] MEDS: LOSARTAN POTASSIUM 50 MG TABLET PO SCH (10:03)
[2024-07-24 09:08] LABS: HEMATOCRIT 45.8 % (35.4-49); HEMOGLOBIN 15.4 GM/dL (11.7-16.9); MCH 32.3 pg (25.7-33.7); MCHC 33.6 g/dl (32.0-35.9); MEAN CELL VOLUME 96.2 fl (80-96); PLATELET COUNT 294 10^3/uL (134-434); RBC 4.76 M/mm3 (4.00-5.60); RDW 13.9 % (11.9-15.9); WHITE BLOOD COUNT 7.3 K/mm3 (4.0-10.0)
[2024-07-24 09:31] LABS: ALBUMIN 3.6 g/dl (3.4-5.0); BLOOD UREA NITROGEN 21.1 mg/dL (7-18); CALCIUM 9.5 mg/dL (8.5-10.1)
[2024-07-24 09:35] LABS: CREATININE 1.2 mg/dL (0.55-1.3); TOT PROT 7.3 g/dl (6.4-8.2)
[2024-07-24] MEDS: PRAMIPEXOLE DIHYDROCHLORIDE 0.25 MG TABLET PO SCH (10:02)
[2024-07-24] MEDS: EMPAGLIFLOZIN (JARDIANCE) 10 MG TABLET PO SCH (10:02)
[2024-07-24] MEDS: ACETAMINOPHEN 1000 MG/100 ML BAG IVPB PRN (22:14)
[2024-07-25 06:20] VITALS: RESP 18
[2024-07-25 14:47] VITALS: BP 113/91; PULSE 71; TEMP 97.9
== END 2024-07-25 18:08 | disposition home or self-care (01) | DRG 86 ==
LOC: JER 22:31 → JERBED 07-20 00:36 → OBSVTOIN 07-20 02:12 → J4W 07-20 04:54 → JICU 07-20 18:12 → J4S 07-22 19:58
PROVIDERS: ADMIT Internal Medicine; ATTEND Internal Medicine
DX: S06.5X0A Traumatic subdural hemorrhage without loss of consciousness, initial encounter (principal); I16.1 Hypertensive emergency; G81.91 Hemiplegia, unspecified affecting right dominant side; K31.84 Gastroparesis; E13.43 Other specified diabetes mellitus with diabetic autonomic (poly)neuropathy; I50.9 Heart failure, unspecified; I11.0 Hypertensive heart disease with heart failure; K56.41 Fecal impaction; F12.90 Cannabis use, unspecified, uncomplicated; R11.2 Nausea with vomiting, unspecified; W19.XXXA Unspecified fall, initial encounter; Y93.9 Activity, unspecified; Y92.89 Other specified places as the place of occurrence of the external cause; Y99.9 Unspecified external cause status
CPT/HCPCS: 0241U-QW; 36415; 70450-TC; 71045-TC-FY; 74150-TC; 80048; 80053; 80061; 80076; 80307; 81003; 82150; 82787; 82962; 83036; 83690; 83735; 84100; 84478; 84484; 85025; 85027; 85651; 86140; 86301; 86850; 86900; 86901; 87086; 87481; 93005; 93010; 97116-GP; 97161-GP; 99285-25; G0378; J0131